=== PATIENT | female | born 1940 | race American Indian/Alaskan Native ===

== ENCOUNTER 2017-12-30 21:45 | Inpatient (IN) | payer MEDICARE, OTHER ==
[2017-12-30 21:46] VITALS: BMI 14.7
[2017-12-30 22:07] LABS: VENOUS BLOOD GAS BASE EXCESS 16.6 mmol/L (0.0-2.0); VENOUS BLOOD GAS PCO2 50 mmHg (40-60); VENOUS BLOOD GAS PO2 76 mm/Hg (30-55); VENOUS BLOOD PH 7.53 (7.32-7.43)
[2017-12-30] MEDS ORDERED: Sodium Chloride 0.9% 1,000 ML ONE ×2 (22:10→23:05)
[2017-12-30] MEDS ORDERED: Sodium Chloride 0.9% 1,000 ML IV ONE (22:11)
--- NOTE | 2017-12-30 22:11 | C.PDOC ---
History Of Present Illness 77 y/o female, with Hx of HTN, aphasia, and questionable CVA& Dementia, was sent from [facility] after a staff member noticed that the patient was not eating well and seemed lethargic. Patient known to have an elevated temperature. Patient DNR, DNI, and she is unable to provide further Hx due to condition. Vital signs noted febrile and Tachycardic. Patient was also diagnosed with COPD about 3 weeks ago in [facility]. Chief Complaint (Nursing): Shortness Of Breath History Per: Patient History/Exam Limitations: no limitations Onset/Duration Of Symptoms: Hrs Current Symptoms Are (Timing): Still Present Current Respiratory Medications: See Home Med List Recent travel outside of the [place]: No Past Medical History Reviewed: Historical Data, Nursing Documentation, Vital Signs Vital Signs: Last Vital Signs Temp 99.4 F 12/30/17 23:36 Pulse 114 H 12/30/17 23:45 Resp 36 H 12/30/17 23:45 BP 173/75 H 12/30/17 23:45 Pulse Ox 99 12/30/17 23:45 - Medical History PMH: Anxiety, Arthritis (BACK), Asthma, COPD, HTN, Hypercholesterolemia Surgical History: No Surg Hx Family History: States: Unknown Family Hx - Social History Hx Alcohol Use: No Hx Substance Use: No - Immunization History Hx Tetanus Toxoid Vaccination: Yes Hx Influenza Vaccination: Yes Hx Pneumococcal Vaccination: Yes Review Of Systems Review Of Systems: ROS cannot be obtained secondary to pt's inabilty to answer questions. (Patient Unable to participate) Physical Exam - Physical Exam Appears: Non-toxic, Other (Non-verbal, only moaning. ) Skin: No Rash, Other (Poor skin turgor ) Head: Atraumatic, Normacephalic Eye(s): bilateral: Normal Inspection, PERRL, EOMI Ear(s): Bilateral: Normal Oral Mucosa: Dry (Extremely Dry ) Tongue: Fissured Throat: Normal, No Erythema, No Exudate, No Drooling Neck: Supple Chest: Symmetrical, No Tenderness Cardiovascular: Rhythm Regular (Accelerated ), No JVD Respiratory: Rales (bibasilar crackles), No Rhonchi, No Stridor, No Wheezing Gastrointestinal/Abdominal: Soft, No Tenderness, No Distention, No Guarding, No Rebound Extremity: No Deformity, Other (Right AKA) Pulses: Left Dorsalis Pedis: Normal, Right Dorsalis Pedis: Normal Neurological/Psych: No Oriented x3, No Normal Speech, No Normal Cognition, Other (No focal deficits ) ED Course And Treatment - Laboratory Results Result Diagrams: 12/30/17 22:26 12/30/17 22:26 Interpretation Of Abnormal: c/w urosepsis Urine POC: Negative O2 Sat by Pulse Oximetry: 100 (RA) Pulse Ox Interpretation: Normal - Other Rad CXR X-Ray: Interpreted by Me, Viewed By Me Interpretation: - No obvious infiltrates. - No active pulmonary disease Medical Decision Making Medical Decision Making: Impression: - Sepsis - Probable Pneumonia - r/o PE - Patient DNR & DNI - Ordered BG, blood work, EKG, CXR, blood and urine culture, and urinalysis. - Will provide IV fluids and Tylenol and notify PMD for admission. Diagnosis: - Urosepsis - Hypernatremia Called for patient's admission. Disposition - Disposition Disposition: HOSPITALIZED Disposition Time: 04:09 Condition: GUARDED - Clinical Impression Clinical Impression: Fever, UTI (urinary tract infection), bacterial, Dehydration with hypernatremia - Scribe Statement The provider has reviewed the documentation as recorded by the Scribe Osmany Hazel All medical record entries made by the Scribe were at my direction and personally dictated by me. I have reviewed the chart and agree that the record accurately reflects my personal performance of the history, physical exam, medical decision making, and the department course for this patient. I have also personally directed, reviewed, and agree with the discharge instructions and disposition.
[2017-12-30 22:34] LABS: BASO # 0.1 K/uL (0.0-0.2); BASO % 0.6 % (0.0-2.0); EOS % 0.2 % (0.0-4.0); HEMOGLOBIN 8.5 g/dL (11.0-16.0); LYMPH # 1.3 K/uL (1.0-4.3); MEAN CELL VOLUME 88.5 fL (81.0-99.0); MEAN CORPUSCULAR HEMOGLOBIN 27.9 pg (27.0-31.0); MEAN CORPUSCULAR HGB CONC 31.5 g/dL (33.0-37.0); MEAN PLATELET VOLUME 8.9 fL (7.2-11.7); MONO # 0.9 K/uL (0.0-0.8); MONO % 5.6 % (0.0-10.0); NEUT % 85.6 % (50.0-75.0); NRBC % 0.2 % (0.0-2.0); PLATELET COUNT 272 K/uL (130-400); RBC 3.05 Mil/uL (3.80-5.20); RED CELL DISTRIBUTION WIDTH 17.4 % (11.5-14.5); WHITE BLOOD COUNT 16.3 K/uL (4.8-10.8)
[2017-12-30 22:40] LABS: URINE BACTERIA MOD (<OCC); URINE BILIRUBIN NEGATIVE (NEGATIVE); URINE BLOOD 1+ (NEGATIVE); URINE CLARITY Hazy (Clear); URINE COLOR Amber (YELLOW); URINE GLUCOSE (UA) NORMAL (Normal); URINE LEUKOCYTE ESTERASE TRACE Leu/uL (Negative); URINE PROTEIN 1+ mg/dL (NEGATIVE)
[2017-12-30] MEDS ORDERED: cefTRIAXone IV 1 gm in Dextros 50 ML IVPB STA (22:42)
[2017-12-30 22:43] LABS: INR 1.3; PROTHROMBIN TIME 13.9 SECONDS (9.7-12.2)
[2017-12-30 22:49] LABS: ALB/GLOB RATIO 1.1 (1.0-2.1); ALBUMIN 3.6 g/dL (3.5-5.0); ALT/SGPT 28 U/L (9-52); AST/SGOT 75 U/L (14-36); BLOOD UREA NITROGEN 26 mg/dL (7-17); GFR AFRICAN-AMERICAN > 60; GFR NON-AFRICAN AMERICAN > 60
[2017-12-30] MEDS ORDERED: cefTRIAXone IV 1 gm in Dextros 50 ML IVPB ONE (22:52)
[2017-12-30 23:15] LABS: BANDS 2 % (0-2); LYMPHOCYTE 6 % (20-40); MONOCYTE 5 % (0-10); NEUTROPHIL 87 % (50-75); PLATELET ESTIMATE NORMAL (NORMAL); TOTAL CELLS COUNTED 100
[2017-12-30] MEDS ORDERED: Sodium Chloride 0.9% 1,000 ML IV SCH (23:15)
--- NOTE | 2017-12-30 23:56 | CP.PCM.HP ---
History of Present Illness - History of Present Illness History of Present Illness: CC: shortness of breath History Of Present Illness 77 y/o female, with Hx of HTN, aphasia, and questionable CVA& Dementia, was sent from [facility] after a staff member noticed that the patient was not eating well and seemed lethargic. Patient known to have an elevated temperature. Patient DNR, DNI, and she is unable to provide further Hx due to condition. Vital signs noted febrile and Tachycardic. Patient was also diagnosed with COPD about 3 weeks ago in [facility]. Present on Admission - Present on Admission Any Indicators Present on Admission: Yes Review of Systems - Review of Systems Systems not reviewed;Unavailable: Acuity of Condition - Constitutional Constitutional: Fatigue, Fever, Lethargy, Malaise, Weakness - EENT Eyes: absent: As Per HPI, Blind Spots, Blurred Vision, Change in Vision, Decreased Night Vision, Diplopia, Discharge, Dry Eye, Exophthalmos, Floaters, Irritation, Itchy Eyes, Loss of Peripheral Vision, Pain, Photophobia, Requires Corrective Lenses, Sees Flashes, Spots in Vision, Tunnel Vision, Other Visual Disturbances, Loss of Vision, Other - Cardiovascular Cardiovascular: absent: As Per HPI, Acrocyanosis, Chest Pain, Chest Pain at Rest , Chest Pain with Activity, Claudication, Diaphoresis, Dyspnea, Dyspnea on Exertion, Edema, Irregular Heart Rhythm, Pain Radiating to Arm/Neck/Jaw, Leg Edema, Leg Ulcers, Lightheadedness, Orthopnea, Palpitations, Paroxysmal Nocturnal Dyspnea, Pedal Edema, Radiating Pain, Rapid Heart Rate, Slow Heart Rate, Syncope, Other - Respiratory Respiratory: Cough, Dyspnea, Dyspnea on Exertion - Gastrointestinal Gastrointestinal: Abdominal Pain - Genitourinary Genitourinary: Urinary Frequency - Reproductive: Female Reproductive:Female: absent: As Per HPI, Amenorrhea, Amenorrhea/ Control, Currently Menstual, Cycle <21 Days, Cycle >35 Days, Cycle Variable, Menses 1-7 Days, Menses >/= 8 Days, Menses Variable, Cycle > 4 Weeks Between, No Menses for 6 Months, Heavy Menses, Light Menses, Normal Menses, Spotting Between Cycles , S/P Hysterectomy, Menopausal, Post Menopausal, Premenarche, Abnormal Vaginal Bleeding, Dysmenorrhea, Dyspareunia, Genital Lesions, Genital Pruritis, Pelvic Pain, Prolapse Symptoms, Sexual Dysfunction, Vaginal Discharge, Vaginal Dryness , Vaginal Odor, Vaginal Pruritis, Other - Menstruation Menstruation: absent: As Per HPI, Amenorrhea, Amenorrhea/ Control, Currently Menstual, Cycle <21 Days, Cycle >35 Days, Cycle Variable, Menses 1-7 Days, Menses >/= 8 Days, Menses Variable, Cycle > 4 Weeks Between, No Menses for 6 Months, Heavy Menses, Light Menses, Normal Menses, Spotting Between Cycles , S/P Hysterectomy, Menopausal, Post Menopausal, Premenarche, Abnormal Vaginal Bleeding, Dysmenorrhea, Other - Musculoskeletal Musculoskeletal: Abnormal Gait, Back Pain, Muscle Weakness, Myalgias, Stiffness - Neurological Neurological: Abnormal Gait, Dizziness, Memory Loss - Psychiatric Psychiatric: Anxiety, Irritability - Endocrine Endocrine: absent: As Per HPI, Change in Body Appearance, Change in Libido, Cold Intolorance, Deepening of Voice, Excessive Sweating, Fatigue, Flushing, Heat Intolorance, Increase in Ring/Shoe/Hat Size, Palpitations, Polydipsia, Polyphagia, Polyuria, Other Past Patient History - Infectious Disease Hx of Infectious Diseases: None - Past Medical History & Family History Past Medical History?: Yes - Past Social History Smoking Status: Never Smoked - CARDIAC Hx Hypercholesterolemia: Yes Hx Hypertension: Yes - PULMONARY Hx Asthma: Yes Hx Chronic Obstructive Pulmonary Disease (COPD): Yes - NEUROLOGICAL Hx Neurological Disorder: No - RENAL Hx Chronic Kidney Disease: No - ENDOCRINE/METABOLIC Hx Endocrine Disorders: No - INTEGUMENTARY Hx Dermatological Problems: Yes Other/Comment: Non-healing wound right heel secured with gauze - MUSCULOSKELETAL/RHEUMATOLOGICAL Hx Arthritis: Yes (BACK) - GASTROINTESTINAL Hx Gastrointestinal Disorders: No - PSYCHIATRIC Hx Anxiety: Yes Hx Substance Use: No - SURGICAL HISTORY Hx Surgeries: Yes Other/Comment: Left AKA - ANESTHESIA Hx Anesthesia: Yes Hx Anesthesia Reactions: No Meds Allergies/Adverse Reactions: Allergies Allergy/AdvReac Type Severity Reaction Status Date / Time tuna oil Allergy URTICARIA Verified 12/30/17 21:48 Physical Exam - Constitutional Appears: No Acute Distress, Chronically Ill - Head Exam Head Exam: ATRAUMATIC, NORMAL INSPECTION, NORMOCEPHALIC - Eye Exam Eye Exam: EOMI, Normal appearance, PERRL Pupil Exam: NORMAL ACCOMODATION, PERRL - Respiratory Exam Respiratory Exam: Decreased Breath Sounds, Rhonchi - Cardiovascular Exam Cardiovascular Exam: REGULAR RHYTHM, +S1, +S2 - GI/Abdominal Exam GI & Abdominal Exam: Normal Bowel Sounds, Soft. absent: Tenderness - Rectal Exam Rectal Exam: Deferred - Back Exam Back exam: CVA tenderness (L), muscle spasm - Neurological Exam Neurological exam: Alert, CN II-XII Intact, Oriented x3 - Psychiatric Exam Psychiatric exam: Anxious - Skin Skin Exam: Dry, Intact, Normal Color, Warm Results - Vital Signs Recent Vital Signs: Last Vital Signs Temp 99.4 F 12/30/17 23:36 Pulse 114 H 12/30/17 23:45 Resp 36 H 12/30/17 23:45 BP 173/75 H 12/30/17 23:45 Pulse Ox 99 12/30/17 23:45 - Labs Result Diagrams: 01/03/18 07:36 01/03/18 07:36 Labs: Laboratory Results - last 24 hr 12/30/17 12/30/17 12/30/17 22:03 22:26 22:26 WBC 16.3 H D RBC 3.05 L Hgb 8.5 L Hct 27.0 L MCV 88.5 MCH 27.9 MCHC 31.5 L RDW 17.4 H Plt Count 272 D MPV 8.9 Neut % (Auto) 85.6 H Lymph % (Auto) 8.0 L [place] % (Auto) 5.6 Eos % (Auto) 0.2 Baso % (Auto) 0.6 Neut # (Auto) 14.0 H Lymph # (Auto) 1.3 [place] # (Auto) 0.9 H Eos # (Auto) 0.0 Baso # (Auto) 0.1 Neutrophils % (Manual) 87 H Band Neutrophils % 2 Lymphocytes % (Manual) 6 L Monocytes % (Manual) 5 Platelet Estimate Normal PT INR APTT pO2 76 H VBG pH 7.53 H VBG pCO2 50 VBG HCO3 37.9 VBG Total CO2 43.3 H VBG O2 Sat (Calc) 98.0 H VBG Base Excess 16.6 H VBG Potassium 2.8 L Sodium 161.0 H* 163 H* Chloride 117.0 H 109 H Glucose 141 H Lactate 2.5 H Crit Value Called To Er nurse Crit Value Called By Soheila rt Crit Value Read Back Y Blood Gas Notified Time 2206 Potassium 3.2 L Carbon Dioxide 38 H Anion Gap 19 BUN 26 H Creatinine 0.6 L Est GFR ( Amer) > 60 Est GFR (Non-Af Amer) > 60 Random Glucose 134 H Calcium 11.0 H Total Bilirubin 0.6 AST 75 H D ALT 28 Alkaline Phosphatase 101 Total Protein 7.0 Albumin 3.6 Globulin 3.4 Albumin/Globulin Ratio 1.1 Venous Blood Potassium 2.8 L Urine Color Urine Clarity Urine pH Ur Specific [place] Urine Protein Urine Glucose (UA) Urine Ketones Urine Blood Urine Nitrate Urine Bilirubin Urine Urobilinogen Ur Leukocyte Esterase Urine WBC (Auto) Urine RBC (Auto) Urine Bacteria 12/30/17 12/30/17 22:26 22:28 WBC RBC Hgb Hct MCV MCH MCHC RDW Plt Count MPV Neut % (Auto) Lymph % (Auto) [place] % (Auto) Eos % (Auto) Baso % (Auto) Neut # (Auto) Lymph # (Auto) [place] # (Auto) Eos # (Auto) Baso # (Auto) Neutrophils % (Manual) Band Neutrophils % Lymphocytes % (Manual) Monocytes % (Manual) Platelet Estimate PT 13.9 H INR 1.3 APTT 33 pO2 VBG pH VBG pCO2 VBG HCO3 VBG Total CO2 VBG O2 Sat (Calc) VBG Base Excess VBG Potassium Sodium Chloride Glucose Lactate Crit Value Called To Crit Value Called By Crit Value Read Back Blood Gas Notified Time Potassium Carbon Dioxide Anion Gap BUN Creatinine Est GFR ( Amer) Est GFR (Non-Af Amer) Random Glucose Calcium Total Bilirubin AST ALT Alkaline Phosphatase Total Protein Albumin Globulin Albumin/Globulin Ratio Venous Blood Potassium Urine Color Deborah Urine Clarity Hazy Urine pH 6.0 Ur Specific [place] 1.019 Urine Protein 1+ H Urine Glucose (UA) Normal Urine Ketones Trace Urine Blood 1+ H Urine Nitrate Negative Urine Bilirubin Negative Urine Urobilinogen 4.0 H Ur Leukocyte Esterase Trace Urine WBC (Auto) 6 H Urine RBC (Auto) 7 H Urine Bacteria Mod H Assessment & Plan (1) COPD (chronic obstructive pulmonary disease) Status: Acute (2) Dehydration with hypernatremia Status: Acute (3) Fever Status: Acute (4) Septicemia Status: Acute (5) UTI (urinary tract infection), bacterial Status: Acute
[2017-12-31] MEDS ORDERED: Vancomycin 1 gm/NS 200 ml 1 GM/200 ML BAG IVPB ONE (00:55)
[2017-12-31] MEDS ORDERED: guaiFENesin 200 mg/10 ml Syrup UD PO PRN (01:08)
[2017-12-31] MEDS ORDERED: Magnesium Hydroxide Susp 30 ml UD PO PRN (01:08)
[2017-12-31] MEDS ORDERED: Dextrose 5%/0.45% NS 1,000 ML IV SCH (01:15)
[2017-12-31] MEDS ORDERED: Piperacill/Tazo 3.375gm in Dex 3.375 GM/50 ML BAG IVPB SCH (01:15)
[2017-12-31 06:48] LABS: BASO % 0.2 % (0.0-2.0); EOS # 0.1 K/uL (0.0-0.7); EOS % 0.7 % (0.0-4.0); HEMOGLOBIN 7.3 g/dL (11.0-16.0); LYMPH # 0.8 K/uL (1.0-4.3); LYMPH % 6.3 % (20.0-40.0); MEAN CELL VOLUME 89.2 fL (81.0-99.0); MEAN CORPUSCULAR HEMOGLOBIN 28.5 pg (27.0-31.0); MEAN CORPUSCULAR HGB CONC 31.9 g/dL (33.0-37.0); MEAN PLATELET VOLUME 8.5 fL (7.2-11.7); MONO # 0.7 K/uL (0.0-0.8); MONO % 6.1 % (0.0-10.0); NEUT # 10.6 K/uL (1.8-7.0); NEUT % 86.7 % (50.0-75.0); NRBC % 0.1 % (0.0-2.0); PLATELET COUNT 232 K/uL (130-400); RBC 2.56 Mil/uL (3.80-5.20); RED CELL DISTRIBUTION WIDTH 17.1 % (11.5-14.5); WHITE BLOOD COUNT 12.2 K/uL (4.8-10.8)
[2017-12-31 07:23] LABS: ALB/GLOB RATIO 1.1 (1.0-2.1); ALT/SGPT 34 U/L (9-52); AST/SGOT 55 U/L (14-36); BLOOD UREA NITROGEN 22 mg/dL (7-17); CALCIUM 10.1 mg/dl (8.6-10.4); GFR AFRICAN-AMERICAN > 60; GFR NON-AFRICAN AMERICAN > 60
[2017-12-31] MEDS: Albuterol-Ipratrop 3 mg / 0.5 (3 ml) UD INH SCH ×3 (07:55→20:18)
[2017-12-31] MEDS: Tiotropium 18 mcg Cap For Inhalation INH SCH (07:55)
[2017-12-31 08:29] LABS: ANISOCYTOSIS SLIGHT; BANDS 5 % (0-2); EOSINOPHIL 1 % (0-4); HYPOCHROMIC SLIGHT; LYMPHOCYTE 4 % (20-40); MONOCYTE 2 % (0-10); NEUTROPHIL 88 % (50-75); PLATELET ESTIMATE NORMAL (NORMAL); TOTAL CELLS COUNTED 100
--- NOTE | 2017-12-31 08:42 | RAD ---
Chest x-ray single frontal view History: Respiratory distress. Comparison: 06/23/2017 Findings: Biapical pleural thickening with upper lobe granulomatous changes. Hyperinflation suggestive for COPD and or emphysematous changes. Bibasilar breast and nipple shadows. Status post median sternotomy and CABG. Calcification at the aortic knob. Heart size within normal limits. Degenerative changes in the spine. Impression: Biapical pleural thickening with upper lobe granulomatous changes. Hyperinflation suggestive for COPD and or emphysematous changes. Bibasilar breast and nipple shadows. Status post median sternotomy and CABG. Calcification at the aortic knob. Heart size within normal limits.
[2017-12-31] MEDS: Magnesium Oxide 400 mg Tab UD PO SCH ×2 (09:37→17:41)
[2017-12-31] MEDS: Enoxaparin 40 mg Syringe SC SCH (09:38)
[2017-12-31] MEDS: Pantoprazole 40 mg EC Tab PO SCH (09:38)
[2017-12-31] MEDS ORDERED: Potassium Chloride 20 mEq ER Tab PO ONE (12:00)
--- NOTE | 2017-12-31 12:36 | CARD ---
APPROVED REPORT EKG Measurement Heart [id number] <Conclusion> Undetermined rhythm Nonspecific ST and T wave abnormality Abnormal ECG
[2017-12-31] MEDS: Piperacill/Tazo 3.375gm in Dex 3.375 GM/50 ML BAG IVPB SCH ×2 (13:21→21:12)
[2017-12-31] MEDS: guaiFENesin 200 mg/10 ml Syrup UD PO SCH (21:50)
--- NOTE | 2017-12-31 23:21 | CP.PCM.PN ---
Subjective - Date & Time of Evaluation Date of Evaluation: 12/31/17 Time of Evaluation: 18:40 - Subjective Subjective: Pt is feeling better, seen and examined by me today, improving, Na is improving. on Iv fluids, antibiotics, monitor pt on medical management Objective - Vital Signs/Intake and Output Vital Signs (last 24 hours): Temp Pulse Resp BP Pulse Ox 99.7 F H 85 23 110/50 L 99 12/31/17 22:51 12/31/17 22:51 12/31/17 22:51 12/31/17 22:51 12/31/17 22:51 Intake and Output: 12/31/17 01/01/18 18:59 06:59 Intake Total 1495 355 Output Total 450 100 Balance 1045 255 - Medications Medications: Current Medications Acetaminophen (Tylenol 325mg Tab) 650 mg PO Q4 PRN PRN Reason: Pain, Mild (1-3) Last Admin: 12/31/17 17:41 Dose: 650 mg Albuterol/Ipratropium (Duoneb 3 Mg/0.5 Mg (3 Ml) Ud) 3 ml INH RQID [facility] Last Admin: 12/31/17 20:18 Dose: Not Given Ascorbic Acid (Vitamin C 500 Mg Tab) 500 mg PO DAILY [facility] Last Admin: 12/31/17 09:37 Dose: 500 mg Aspirin (Ecotrin) 81 mg PO DAILY [facility] Last Admin: 12/31/17 09:37 Dose: 81 mg Clonazepam (Klonopin) 0.5 mg PO HS [facility] Last Admin: 12/31/17 21:20 Dose: 0.5 mg Diltiazem HCl (Cardizem) 30 mg PO Q6 [facility] Enoxaparin Sodium (Lovenox) 40 mg SC DAILY [facility] Last Admin: 12/31/17 09:38 Dose: 40 mg Guaifenesin (Robitussin) 200 mg PO Q4H [facility] Last Admin: 12/31/17 21:50 Dose: Not Given Dextrose (Dextrose 5% In Water 1000 Ml) 1,000 mls @ 80 mls/hr IV .[id number] [facility] Last Admin: 12/31/17 21:49 Dose: 80 mls/hr Piperacillin Sod/Tazobactam Sod (Zosyn 3.375 Gm Iv Premix) 3.375 gm in 50 mls @ 100 mls/hr IVPB Q8H [facility] PRN Reason: Protocol Last Admin: 12/31/17 21:12 Dose: 100 mls/hr Magnesium Hydroxide (Milk Of Magnesia) 30 ml PO DAILY PRN PRN Reason: Constipation Magnesium Oxide (Mag-Ox) 400 mg PO BID [facility] Last Admin: 12/31/17 17:41 Dose: 400 mg Pantoprazole Sodium (Protonix Ec Tab) 40 mg PO DAILY [facility] Last Admin: 12/31/17 09:38 Dose: 40 mg Rosuvastatin Calcium (Crestor) 10 mg PO HS [facility] Last Admin: 12/31/17 22:10 Dose: Not Given Fluticasone/Salmeterol (Advair Diskus 500/50) 1 puff INH RQ12 [facility] Tiotropium [place] (Spiriva) 18 mcg INH RQD [facility] Last Admin: 12/31/17 07:55 Dose: Not Given Tramadol HCl (Ultram) 50 mg PO Q8 PRN PRN Reason: Pain, severe (8-10) Last Admin: 12/31/17 01:36 Dose: 50 mg - Labs Labs: 12/31/17 06:42 12/31/17 06:42 PT 13.9 SECONDS (9.7-12.2) H 12/30/17 22:26 INR 1.3 12/30/17 22:26 APTT 33 SECONDS (21-34) 12/30/17 22:26 - Constitutional Appears: No Acute Distress - Head Exam Head Exam: ATRAUMATIC, NORMAL INSPECTION, NORMOCEPHALIC - Eye Exam Eye Exam: EOMI, Normal appearance, PERRL Pupil Exam: NORMAL ACCOMODATION, PERRL - ENT Exam ENT Exam: Mucous Membranes Moist, Normal Exam - Respiratory Exam Respiratory Exam: Clear to Ausculation Bilateral, NORMAL BREATHING PATTERN - Cardiovascular Exam Cardiovascular Exam: REGULAR RHYTHM, +S1, +S2. absent: Murmur - GI/Abdominal Exam GI & Abdominal Exam: Soft, Normal Bowel Sounds. absent: Tenderness - Neurological Exam Neurological Exam: Alert, CN II-XII Intact, Oriented x3 - Psychiatric Exam Psychiatric exam: Anxious - Skin Skin Exam: Dry, Intact, Normal Color, Warm Assessment and Plan (1) COPD (chronic obstructive pulmonary disease) Status: Acute (2) Dehydration with hypernatremia Status: Acute (3) Fever Status: Acute (4) Septicemia Status: Acute (5) UTI (urinary tract infection), bacterial Status: Acute
[2018-01-01] MEDS: guaiFENesin 200 mg/10 ml Syrup UD PO SCH ×6 (02:30→22:09)
[2018-01-01] MEDS: Piperacill/Tazo 3.375gm in Dex 3.375 GM/50 ML BAG IVPB SCH ×3 (04:14→21:12)
[2018-01-01] MEDS: Albuterol-Ipratrop 3 mg / 0.5 (3 ml) UD INH SCH ×2 (08:18→20:37)
[2018-01-01] MEDS: Fluticasone-Salmeterol 500-50mcg Diskus INH SCH ×2 (08:18→20:36)
[2018-01-01] MEDS: Tiotropium 18 mcg Cap For Inhalation INH SCH (08:18)
[2018-01-01 08:35] LABS: BASO # 0.1 K/uL (0.0-0.2); BASO % 0.4 % (0.0-2.0); EOS # 0.3 K/uL (0.0-0.7); EOS % 2.1 % (0.0-4.0); HEMOGLOBIN 9.1 g/dL (11.0-16.0); LYMPH # 1.1 K/uL (1.0-4.3); LYMPH % 8.1 % (20.0-40.0); MEAN CORPUSCULAR HEMOGLOBIN 29.3 pg (27.0-31.0); MEAN CORPUSCULAR HGB CONC 32.5 g/dL (33.0-37.0); MEAN PLATELET VOLUME 8.8 fL (7.2-11.7); MONO # 0.8 K/uL (0.0-0.8); MONO % 5.8 % (0.0-10.0); NEUT # 10.9 K/uL (1.8-7.0); NEUT % 83.6 % (50.0-75.0); PLATELET COUNT 256 K/uL (130-400); RBC 3.09 Mil/uL (3.80-5.20); RED CELL DISTRIBUTION WIDTH 15.9 % (11.5-14.5)
[2018-01-01 09:02] LABS: ALBUMIN 2.9 g/dL (3.5-5.0); ALT/SGPT 35 U/L (9-52); AST/SGOT 59 U/L (14-36); BLOOD UREA NITROGEN 19 mg/dL (7-17); CALCIUM 9.8 mg/dl (8.6-10.4); GFR AFRICAN-AMERICAN > 60; GFR NON-AFRICAN AMERICAN > 60
[2018-01-01 10:08] LABS: ANISOCYTOSIS SLIGHT; BANDS 5 % (0-2); EOSINOPHIL 2 % (0-4); LYMPHOCYTE 4 % (20-40); MONOCYTE 6 % (0-10); NEUTROPHIL 83 % (50-75); PLATELET ESTIMATE NORMAL (NORMAL); TOTAL CELLS COUNTED 100
[2018-01-01 10:09] LABS: POIKILOCYTOSIS SLIGHT
[2018-01-01] MEDS: Enoxaparin 40 mg Syringe SC SCH (10:13)
[2018-01-01] MEDS: Pantoprazole 40 mg EC Tab PO SCH (10:13)
[2018-01-01] MEDS: Magnesium Oxide 400 mg Tab UD PO SCH ×2 (10:13→18:38)
[2018-01-01] MEDS: Potassium Ch 20mEq in D5W 1,000 ML IV SCH ×2 (12:41→21:11)
[2018-01-01 13:51] LABS: ARTERIAL BLOOD GAS HCO3 32.5 mmol/L (21-28); ARTERIAL BLOOD GAS HEMOGLOBIN 13.4 g/dL (11.7-17.4); ARTERIAL BLOOD GAS O2 SAT 100.1 % (95-98); ARTERIAL BLOOD GAS PCO2 71 mm/Hg (35-45); ARTERIAL BLOOD GAS PH 7.34 (7.35-7.45); ARTERIAL BLOOD GAS PO2 315 mm/Hg (80-100); ARTERIAL BLOOD GAS TCO2 40.5 mmol/L (22-28)
--- NOTE | 2018-01-01 23:58 | CP.PCM.PN ---
Subjective - Date & Time of Evaluation Date of Evaluation: 01/01/18 Time of Evaluation: 17:00 - Subjective Subjective: Pt seen and examined at bedside, Na is improving. on Iv fluids, antibiotics, monitor pt on medical management Objective - Vital Signs/Intake and Output Vital Signs (last 24 hours): Temp Pulse Resp BP Pulse Ox 99.3 F 100 H 18 136/60 100 01/01/18 16:00 01/01/18 16:00 01/01/18 16:00 01/01/18 16:00 01/01/18 16:00 Intake and Output: 01/01/18 01/02/18 18:59 06:59 Intake Total 780 1325 Output Total 400 300 Balance 380 1025 - Medications Medications: Current Medications Acetaminophen (Tylenol 325mg Tab) 650 mg PO Q4 PRN PRN Reason: Pain, Mild (1-3) Last Admin: 12/31/17 17:41 Dose: 650 mg Albuterol/Ipratropium (Duoneb 3 Mg/0.5 Mg (3 Ml) Ud) 3 ml INH RQID [facility] Last Admin: 01/01/18 20:37 Dose: Not Given Ascorbic Acid (Vitamin C 500 Mg Tab) 500 mg PO DAILY [facility] Last Admin: 01/01/18 10:13 Dose: 500 mg Aspirin (Ecotrin) 81 mg PO DAILY [facility] Last Admin: 01/01/18 10:13 Dose: 81 mg Clonazepam (Klonopin) 0.5 mg PO HS [facility] Last Admin: 01/01/18 21:11 Dose: Not Given Diltiazem HCl (Cardizem) 60 mg PO Q8 [facility] Last Admin: 01/01/18 21:10 Dose: Not Given Enoxaparin Sodium (Lovenox) 40 mg SC DAILY [facility] Last Admin: 01/01/18 10:13 Dose: 40 mg Guaifenesin (Robitussin) 200 mg PO Q4H [facility] Last Admin: 01/01/18 22:09 Dose: Not Given Piperacillin Sod/Tazobactam Sod (Zosyn 3.375 Gm Iv Premix) 3.375 gm in 50 mls @ 100 mls/hr IVPB Q8H [facility] PRN Reason: Protocol Last Admin: 01/01/18 21:12 Dose: 100 mls/hr Potassium Chloride/Dextrose (Potassium Chl 20 Meq In D5w) 1,000 mls @ 125 mls/ hr IV .Q8H [facility] Last Admin: 01/01/18 21:11 Dose: 125 mls/hr Magnesium Hydroxide (Milk Of Magnesia) 30 ml PO DAILY PRN PRN Reason: Constipation Magnesium Oxide (Mag-Ox) 400 mg PO BID [facility] Last Admin: 01/01/18 18:38 Dose: Not Given Pantoprazole Sodium (Protonix Ec Tab) 40 mg PO DAILY [facility] Last Admin: 01/01/18 10:13 Dose: 40 mg Rosuvastatin Calcium (Crestor) 10 mg PO HS [facility] Last Admin: 01/01/18 21:10 Dose: Not Given Fluticasone/Salmeterol (Advair Diskus 500/50) 1 puff INH RQ12 [facility] Last Admin: 01/01/18 20:36 Dose: Not Given Tiotropium [place] (Spiriva) 18 mcg INH RQD [facility] Last Admin: 01/01/18 08:18 Dose: Not Given Tramadol HCl (Ultram) 50 mg PO Q8 PRN PRN Reason: Pain, severe (8-10) Last Admin: 12/31/17 01:36 Dose: 50 mg - Labs Labs: 01/01/18 08:26 01/01/18 08:26 PT 13.9 SECONDS (9.7-12.2) H 12/30/17 22:26 INR 1.3 12/30/17 22:26 APTT 33 SECONDS (21-34) 12/30/17 22:26
[2018-01-02] MEDS: guaiFENesin 200 mg/10 ml Syrup UD PO SCH ×6 (02:30→22:55)
[2018-01-02] MEDS: Piperacill/Tazo 3.375gm in Dex 3.375 GM/50 ML BAG IVPB SCH ×3 (04:17→21:33)
[2018-01-02] MEDS: Potassium Ch 20mEq in D5W 1,000 ML IV SCH ×5 (04:21→21:34)
[2018-01-02] MEDS: Albuterol-Ipratrop 3 mg / 0.5 (3 ml) UD INH SCH ×3 (07:45→13:49)
[2018-01-02] MEDS: Fluticasone-Salmeterol 500-50mcg Diskus INH SCH (07:45)
[2018-01-02] MEDS: Tiotropium 18 mcg Cap For Inhalation INH SCH (07:59)
[2018-01-02 08:10] LABS: BASO % 0.2 % (0.0-2.0); EOS # 0.1 K/uL (0.0-0.7); EOS % 1.3 % (0.0-4.0); HEMOGLOBIN 8.3 g/dL (11.0-16.0); LYMPH # 0.7 K/uL (1.0-4.3); LYMPH % 7.7 % (20.0-40.0); MEAN CELL VOLUME 88.8 fL (81.0-99.0); MEAN CORPUSCULAR HEMOGLOBIN 29.3 pg (27.0-31.0); MEAN PLATELET VOLUME 8.9 fL (7.2-11.7); MONO # 0.6 K/uL (0.0-0.8); MONO % 6.6 % (0.0-10.0); NEUT # 8.1 K/uL (1.8-7.0); NEUT % 84.2 % (50.0-75.0); NRBC % 0.1 % (0.0-2.0); PLATELET COUNT 249 K/uL (130-400); RBC 2.85 Mil/uL (3.80-5.20); RED CELL DISTRIBUTION WIDTH 15.3 % (11.5-14.5); WHITE BLOOD COUNT 9.6 K/uL (4.8-10.8)
[2018-01-02 08:26] LABS: ALBUMIN 2.7 g/dL (3.5-5.0); ALT/SGPT 27 U/L (9-52); AST/SGOT 47 U/L (14-36); BLOOD UREA NITROGEN 11 mg/dL (7-17); CALCIUM 9.2 mg/dl (8.6-10.4); GFR AFRICAN-AMERICAN > 60; GFR NON-AFRICAN AMERICAN > 60
[2018-01-02 10:05] LABS: ANISOCYTOSIS SLIGHT; BANDS 6 % (0-2); HYPOCHROMIC SLIGHT; LYMPHOCYTE 7 % (20-40); MONOCYTE 6 % (0-10); NEUTROPHIL 81 % (50-75); PLATELET ESTIMATE NORMAL (NORMAL); POIKILOCYTOSIS SLIGHT; TOTAL CELLS COUNTED 100
[2018-01-02 10:06] LABS: OVALOCYTES SLIGHT; SCHISTOCYTES SLIGHT
[2018-01-02] MEDS: Pantoprazole 40 mg EC Tab PO SCH (10:07)
[2018-01-02] MEDS: Magnesium Oxide 400 mg Tab UD PO SCH ×2 (10:07→17:48)
[2018-01-02] MEDS: Enoxaparin 40 mg Syringe SC SCH (10:07)
[2018-01-02 17:32] LABS: INR 1.2; PROTHROMBIN TIME 12.9 SECONDS (9.7-12.2)
[2018-01-03] MEDS: Potassium Ch 20mEq in D5W 1,000 ML IV SCH ×4 (01:30→20:30)
[2018-01-03] MEDS: guaiFENesin 200 mg/10 ml Syrup UD PO SCH ×6 (02:30→21:35)
[2018-01-03] MEDS: Piperacill/Tazo 3.375gm in Dex 3.375 GM/50 ML BAG IVPB SCH ×3 (04:12→21:21)
[2018-01-03 07:43] LABS: HEMOGLOBIN 8.4 g/dL (11.0-16.0); MEAN CELL VOLUME 87.8 fL (81.0-99.0); MEAN CORPUSCULAR HEMOGLOBIN 29.5 pg (27.0-31.0); MEAN CORPUSCULAR HGB CONC 33.6 g/dL (33.0-37.0); MEAN PLATELET VOLUME 8.8 fL (7.2-11.7); RBC 2.83 Mil/uL (3.80-5.20); RED CELL DISTRIBUTION WIDTH 15.8 % (11.5-14.5); WHITE BLOOD COUNT 9.1 K/uL (4.8-10.8)
[2018-01-03 07:55] LABS: ALBUMIN 2.7 g/dL (3.5-5.0); ALT/SGPT 26 U/L (9-52); AST/SGOT 54 U/L (14-36); BLOOD UREA NITROGEN 6 mg/dL (7-17); CALCIUM 9.2 mg/dl (8.6-10.4); GFR AFRICAN-AMERICAN > 60; GFR NON-AFRICAN AMERICAN > 60
--- NOTE | 2018-01-03 08:25 | CP.PCM.PN ---
Subjective - Date & Time of Evaluation Date of Evaluation: 01/02/18 Time of Evaluation: 19:00 - Subjective Subjective: Pt seen and evaluated, is feeling better, afebrile, no shortness of breath, chest pain Objective - Vital Signs/Intake and Output Vital Signs (last 24 hours): Temp Pulse Resp BP Pulse Ox 98.1 F 90 20 146/71 100 01/03/18 07:53 01/03/18 07:53 01/03/18 07:53 01/03/18 07:53 01/03/18 07:53 Intake and Output: 01/03/18 01/03/18 06:59 18:59 Intake Total 1025 Output Total 250 Balance 775 - Medications Medications: Current Medications Acetaminophen (Tylenol 325mg Tab) 650 mg PO Q4 PRN PRN Reason: Pain, Mild (1-3) Last Admin: 12/31/17 17:41 Dose: 650 mg Albuterol/Ipratropium (Duoneb 3 Mg/0.5 Mg (3 Ml) Ud) 3 ml INH RQID [facility] Last Admin: 01/02/18 13:49 Dose: 3 ml Ascorbic Acid (Vitamin C 500 Mg Tab) 500 mg PO DAILY [facility] Last Admin: 01/02/18 10:07 Dose: 500 mg Aspirin (Ecotrin) 81 mg PO DAILY [facility] Last Admin: 01/02/18 10:07 Dose: 81 mg Clonazepam (Klonopin) 0.5 mg PO HS [facility] Last Admin: 01/02/18 21:57 Dose: 0.5 mg Diltiazem HCl (Cardizem) 60 mg PO Q8 [facility] Last Admin: 01/03/18 05:36 Dose: 60 mg Enoxaparin Sodium (Lovenox) 40 mg SC DAILY [facility] Last Admin: 01/02/18 10:07 Dose: 40 mg Guaifenesin (Robitussin) 200 mg PO Q4H [facility] Last Admin: 01/03/18 02:30 Dose: Not Given Piperacillin Sod/Tazobactam Sod (Zosyn 3.375 Gm Iv Premix) 3.375 gm in 50 mls @ 100 mls/hr IVPB Q8H [facility] PRN Reason: Protocol Last Admin: 01/03/18 04:12 Dose: 100 mls/hr Potassium Chloride/Dextrose (Potassium Chl 20 Meq In D5w) 1,000 mls @ 125 mls/ hr IV .Q8H [facility] Last Admin: 01/03/18 04:59 Dose: Not Given Magnesium Hydroxide (Milk Of Magnesia) 30 ml PO DAILY PRN PRN Reason: Constipation Magnesium Oxide (Mag-Ox) 400 mg PO BID [facility] Last Admin: 01/02/18 17:48 Dose: 400 mg Pantoprazole Sodium (Protonix Inj) 40 mg IVP DAILY [facility] Rosuvastatin Calcium (Crestor) 10 mg PO HS [facility] Last Admin: 01/02/18 21:57 Dose: 10 mg Fluticasone/Salmeterol (Advair Diskus 500/50) 1 puff INH RQ12 [facility] Last Admin: 01/02/18 07:45 Dose: Not Given Tiotropium [place] (Spiriva) 18 mcg INH RQD [facility] Last Admin: 01/02/18 07:59 Dose: Not Given Tramadol HCl (Ultram) 50 mg PO Q8 PRN PRN Reason: Pain, severe (8-10) Last Admin: 12/31/17 01:36 Dose: 50 mg - Labs Labs: 01/03/18 07:36 01/03/18 07:36 PT 12.9 SECONDS (9.7-12.2) H 01/02/18 17:08 INR 1.2 01/02/18 17:08 APTT 27 SECONDS (21-34) D 01/02/18 17:08 - Constitutional Appears: No Acute Distress - Head Exam Head Exam: ATRAUMATIC, NORMAL INSPECTION, NORMOCEPHALIC - Eye Exam Eye Exam: EOMI, Normal appearance, PERRL Pupil Exam: NORMAL ACCOMODATION, PERRL - Neck Exam Neck Exam: Full ROM, Normal Inspection. absent: Lymphadenopathy - Respiratory Exam Respiratory Exam: Clear to Ausculation Bilateral, NORMAL BREATHING PATTERN - Cardiovascular Exam Cardiovascular Exam: REGULAR RHYTHM, +S1, +S2. absent: Murmur - GI/Abdominal Exam GI & Abdominal Exam: Soft, Normal Bowel Sounds. absent: Tenderness - Neurological Exam Neurological Exam: Alert, Awake, CN II-XII Intact, Oriented x3 - Psychiatric Exam Psychiatric exam: Anxious Assessment and Plan (1) COPD (chronic obstructive pulmonary disease) Status: Acute (2) Dehydration with hypernatremia Status: Acute (3) Fever Status: Acute (4) Septicemia Status: Acute (5) UTI (urinary tract infection), bacterial Status: Acute
[2018-01-03] MEDS: Tiotropium 18 mcg Cap For Inhalation INH SCH (08:27)
[2018-01-03] MEDS: Fluticasone-Salmeterol 500-50mcg Diskus INH SCH ×2 (08:27→20:21)
[2018-01-03] MEDS: Albuterol-Ipratrop 3 mg / 0.5 (3 ml) UD INH SCH ×4 (08:27→20:21)
[2018-01-03] MEDS: Enoxaparin 40 mg Syringe SC SCH (09:43)
[2018-01-03] MEDS: Magnesium Oxide 400 mg Tab UD PO SCH ×2 (09:44→18:30)
--- NOTE | 2018-01-03 13:43 | PN ---
DATE: 01/03/2018 LOCATION: 365, bed A. SUBJECTIVE: This is a 77-year-old female seen initially for GI consultation on 01/02/[address] Noel, case discussed at length with him yesterday before and after my GI consultation, patient being seen again today early in the morning, still on ventimask, with very poor oral intake, in a state of DNR and DNI. The entire chart is reviewed including, but not limited to, the most recent lab and radiology study results, current and previous medication list, current and previous medical events. Case discussed with the staff at length. Today's labs showed hemoglobin of 8.4, hematocrit 24.9, with reported PT of 12.9, but normal PTT, with abnormal ABGs. Potassium 3.5, CO2 content of 36 indicative of respiratory alkalosis with low BUN and creatinine, blood glucose level 125, AST 54, with albumin of 2.7, total protein 5.6. PHYSICAL EXAMINATION: GENERAL: A 77-year-old female. VITAL SIGNS: Afebrile with pulse of 92, respiratory rate of 20 to 22, blood pressure of 130/68. HEENT: Showed pale, dry, mucous membranes. Nonicteric sclerae. LUNGS: Scattered bilateral crepitation, with decreased air entry at bases. HEART: Positive S1 and S2, with increased rate. ABDOMEN: With slight generalized tenderness and mild distention. No mass or organomegaly. No rebound tenderness or guarding. RECTAL EXAMINATION: Deferred due to the patient's cardiopulmonary status. EXTREMITIES: With lower extremity mild edematous changes. No clubbing or cyanosis. NEUROLOGIC: No new reported neurological deficits, sensory or motor. IMPRESSION: 1. Malnutrition with hypoalbuminemia and proteinemia. 2. Failure to thrive with probable cerebrovascular accident and dysphagia. 3. Multiple past medical history including, but not limited to, chronic obstructive pulmonary disease, hyperlipidemia, hypertension, osteoarthritis. 4. Anemia most likely secondary to above. 5. Respiratory alkalosis most likely secondary to above. 6. Status post chronic obstructive pulmonary disease by history. 7. Electrolyte imbalance. SUGGESTIONS: 1. Agree with your plan. 2. Correct any underlying electrolyte imbalance. 3. Central hyperalimentation. 4. The patient is a candidate for PEG insertion; however, she is not stable clinically for any aggressive GI procedure in the meantime due to her respiratory insufficiency and status. Further recommendation to follow. Case discussed with Dr. Noel as well as the family. Preston Brown MD
[2018-01-03] MEDS: Vancomycin 1 gm/NS 200 ml 1 GM/200 ML BAG IVPB SCH (21:24)
[2018-01-04] MEDS: guaiFENesin 200 mg/10 ml Syrup UD PO SCH ×6 (02:48→23:52)
[2018-01-04] MEDS: Piperacill/Tazo 3.375gm in Dex 3.375 GM/50 ML BAG IVPB SCH ×3 (04:34→21:09)
[2018-01-04] MEDS: Potassium Ch 20mEq in D5W 1,000 ML IV SCH ×3 (04:36→21:15)
--- NOTE | 2018-01-04 05:29 | CP.PCM.PN ---
Subjective - Date & Time of Evaluation Date of Evaluation: 01/03/18 Time of Evaluation: 18:00 - Subjective Subjective: Pt seen and examined by me is is anxious but improving clinincally, afebrile Na is improving. on Iv fluids, antibiotics, monitor pt on medical management, denies chest pian, nausea, vomitting, abdominal pain, shortness of breath Objective - Vital Signs/Intake and Output Vital Signs (last 24 hours): Temp Pulse Resp BP Pulse Ox 98.4 F 120 H 20 124/46 L 98 01/04/18 00:00 01/04/18 00:00 01/04/18 00:00 01/04/18 00:00 01/04/18 00:00 Intake and Output: 01/03/18 01/04/18 18:59 06:59 Intake Total 1250 1200 Output Total 700 1000 Balance 550 200 - Medications Medications: Current Medications Acetaminophen (Tylenol 325mg Tab) 650 mg PO Q4 PRN PRN Reason: Pain, Mild (1-3) Last Admin: 12/31/17 17:41 Dose: 650 mg Albuterol/Ipratropium (Duoneb 3 Mg/0.5 Mg (3 Ml) Ud) 3 ml INH RQID [facility] Last Admin: 01/03/18 20:21 Dose: 3 ml Ascorbic Acid (Vitamin C 500 Mg Tab) 500 mg PO DAILY [facility] Last Admin: 01/03/18 09:44 Dose: 500 mg Aspirin (Ecotrin) 81 mg PO DAILY [facility] Last Admin: 01/03/18 09:44 Dose: 81 mg Clonazepam (Klonopin) 0.5 mg PO HS [facility] Last Admin: 01/03/18 21:23 Dose: 0.5 mg Diltiazem HCl (Cardizem) 60 mg PO Q8 [facility] Last Admin: 01/03/18 21:26 Dose: 60 mg Enoxaparin Sodium (Lovenox) 40 mg SC DAILY [facility] Last Admin: 01/03/18 09:43 Dose: 40 mg Guaifenesin (Robitussin) 200 mg PO Q4H [facility] Last Admin: 01/04/18 02:48 Dose: Not Given Piperacillin Sod/Tazobactam Sod (Zosyn 3.375 Gm Iv Premix) 3.375 gm in 50 mls @ 100 mls/hr IVPB Q8H [facility] PRN Reason: Protocol Last Admin: 01/04/18 04:34 Dose: 100 mls/hr Potassium Chloride/Dextrose (Potassium Chl 20 Meq In D5w) 1,000 mls @ 125 mls/ hr IV .Q8H [facility] Last Admin: 01/04/18 04:36 Dose: Not Given Vancomycin/Sodium Chloride (Vancomycin 1 Gm/Ns 200 Ml) 1 gm in 200 mls @ 133 mls/hr IVPB Q24H [facility] PRN Reason: Protocol Stop: 01/08/18 18:01 Last Admin: 01/03/18 21:24 Dose: 133 mls/hr Magnesium Hydroxide (Milk Of Magnesia) 30 ml PO DAILY PRN PRN Reason: Constipation Magnesium Oxide (Mag-Ox) 400 mg PO BID [facility] Last Admin: 01/03/18 18:30 Dose: 400 mg Pantoprazole Sodium (Protonix Inj) 40 mg IVP DAILY [facility] Last Admin: 01/03/18 09:44 Dose: 40 mg Rosuvastatin Calcium (Crestor) 10 mg PO HS [facility] Last Admin: 01/03/18 21:22 Dose: 10 mg Fluticasone/Salmeterol (Advair Diskus 500/50) 1 puff INH RQ12 [facility] Last Admin: 01/03/18 20:21 Dose: Not Given Tiotropium [place] (Spiriva) 18 mcg INH RQD [facility] Last Admin: 01/03/18 08:27 Dose: 18 mcg Tramadol HCl (Ultram) 50 mg PO Q8 PRN PRN Reason: Pain, severe (8-10) Last Admin: 12/31/17 01:36 Dose: 50 mg - Labs Labs: 01/03/18 07:36 01/03/18 07:36 PT 12.9 SECONDS (9.7-12.2) H 01/02/18 17:08 INR 1.2 01/02/18 17:08 APTT 27 SECONDS (21-34) D 01/02/18 17:08 - Constitutional Appears: No Acute Distress, Chronically Ill - Head Exam Head Exam: ATRAUMATIC, NORMAL INSPECTION, NORMOCEPHALIC - Eye Exam Eye Exam: EOMI, Normal appearance, PERRL Pupil Exam: NORMAL ACCOMODATION, PERRL - Respiratory Exam Respiratory Exam: Clear to Ausculation Bilateral, NORMAL BREATHING PATTERN - Cardiovascular Exam Cardiovascular Exam: REGULAR RHYTHM, +S1, +S2. absent: Murmur - GI/Abdominal Exam GI & Abdominal Exam: Soft, Normal Bowel Sounds. absent: Tenderness Assessment and Plan (1) COPD (chronic obstructive pulmonary disease) Status: Acute (2) Dehydration with hypernatremia Status: Acute (3) Fever Status: Acute (4) Septicemia Status: Acute (5) UTI (urinary tract infection), bacterial Status: Acute
--- NOTE | 2018-01-04 07:15 | CON ---
DATE: 01/02/[address] Brown to Dr. John Noel. I was called for GI consultation by the admitting MD. The patient is seen and fully examined on 01/02/2018 in the presence of her family members. The entire chart is reviewed including but not limited to most recent lab and radiology study results, current and the previous medication list, current and the previous medical events, allergy to medication list as well as all the available current and the previous medical records. Case discussed with the staff at length. HISTORY OF PRESENT ILLNESS: This is a 77 years old female aphasic who was admitted to the hospital through the emergency room from a senior care with a complaint of very poor oral intake, became lethargic, very poorly respond to any verbal stimuli, it was noticed also as per record the patient is in a status of DNR and DNI. All the information was obtained from medical record, medical staff and nursing staff notes as well as senior care notes. PAST MEDICAL HISTORY: As mentioned including but not limited to; 1. COPD. 2. Hypertension. 3. Hyperlipidemia. 4. Osteoarthritis with chronic lower back pain syndrome. 5. Severe anxiety syndrome. 6. Reported possible CVA. The patient is aphasic with apparently another past medical history of dementia. FAMILY HISTORY Unknown. SOCIAL HISTORY No reported recent history of cigarette smoking or alcohol intake. The patient is a senior care resident. CURRENT MEDICATIONS: Medication list post admission was reviewed. LABORATORY DATA: Initial blood workup at the time of the admission showed hemoglobin of 8.5, hematocrit 27 with leukocytosis of 16.3 with BUN of 26, but low creatinine. Blood glucose level 134, sodium 163 with potassium 3.2 which gradually was improved. PHYSICAL EXAMINATION: GENERAL: A 77 years old female, nonverbal, all the information was obtained from the family members at bedside. VITAL SIGNS: Low grade temperature, pulse of 102, respiratory rate of 22-24 on Venti mask with blood pressure of 166/72. HEENT: Showed pale dry oral mucous membrane. Nonicteric sclerae. LUNGS: Bilateral crepitation with decreased air entry at bases with few rhonchi and few rales. Bilaterally air entry decreased. HEART: Positive S1 and S2 with increased rate. ABDOMEN: Soft with mild generalized tenderness. No mass or organomegaly. No rebound tenderness or guarding. EXTREMITIES: Lower extremity edematous changes. No clubbing or cyanosis. NEUROLOGIC: No reported new neurological deficits, sensory or motor. No reported new focal deficits. IMPRESSION: 1. Failure to thrive with malnutrition and reported . 2. The patient is a candidate for percutaneous endoscopic gastrostomy insertion when she is more stable clinically. 3. Electrolyte imbalance. 4. Known history of chronic obstructive pulmonary disease with respiratory insufficiency and possible acute bronchitis and/or pneumonia 5. Known history of hypertension, hyperlipidemia, congestive heart failure. 6. Possible cerebrovascular accident the patient is aphasic. 7. Anemia most likely secondary to chronic disease versus less likely gastrointestinal blood loss. SUGGESTIONS: 1. Agree with your plan. 2. Correct any underlying electrolyte imbalance. 3. Central hyperalimentation. 4. Cancer markers including CEA and CA-125. 5. Repeat PT and PTT to correct any underlying coagulopathy, if any. 6. The patient to be scheduled for potential PEG insertion only when she is more stable clinically. 7. The case was discussed at length with Dr. Noel before and immediately after my GI consultation on 01/02/2018. Thank you for letting me participate in your patient's case management. Further recommendations to follow. Preston Brown MD
[2018-01-04] MEDS: Albuterol-Ipratrop 3 mg / 0.5 (3 ml) UD INH SCH ×3 (08:10→20:57)
[2018-01-04] MEDS: Fluticasone-Salmeterol 500-50mcg Diskus INH SCH ×2 (08:11→20:57)
[2018-01-04] MEDS: Tiotropium 18 mcg Cap For Inhalation INH SCH (08:11)
[2018-01-04] MEDS: Enoxaparin 40 mg Syringe SC SCH (09:50)
[2018-01-04] MEDS: Magnesium Oxide 400 mg Tab UD PO SCH ×2 (09:51→17:54)
[2018-01-04] MEDS: Vancomycin 1 gm/NS 200 ml 1 GM/200 ML BAG IVPB SCH (17:55)
--- NOTE | 2018-01-04 20:33 | PN ---
DATE: 01/04/2018 LOCATION: 365, bed A. SUBJECTIVE: This is a 77-year-old female in a status of DNR and DNI, seen and examined in rounds with the staff on the floor without any significant clinical changes or reported active bleeding with very poor oral intake. The entire chart is reviewed including but not limited to the most recent lab and radiology study results, current and the previous medication list, current and the previous medical events. No reported actual chest pain, palpitation, or vomiting, but with less shortness of breath. No abdominal pain, but loss of appetite. Most recent lab results reviewed indicative of low hemoglobin and hematocrit, but today's lab is still pending with the latest abnormal ABGs with low potassium, low BUN and creatinine, low total protein, and low albumin. PHYSICAL EXAMINATION: GENERAL: A 77-year-old female. VITAL SIGNS: Afebrile, with pulse of 102, respiratory rate 20 to 22, blood pressure of 136/76. HEENT: Showed pale dry oral mucous membranes. Nonicteric sclera. LUNGS: Few scattered crepitations. Decreased air entry at bases. HEART: Positive S1 and S2. ABDOMEN: Soft. Bowel sounds are present. No mass or organomegaly. No rebound tenderness or guarding. EXTREMITIES: With lower extremity slight edematous changes. NEUROLOGIC: No new reported neurological deficits, sensory or motor. No new reported focal deficits. IMPRESSION: 1. Failure to thrive. 2. Malnutrition with hypoalbuminemia and hypoproteinemia. 3. Reported history of possible cerebrovascular accident with dysphagia, by history. 4. Last medical history including mainly chronic obstructive pulmonary disease, hypertension, hyperlipidemia, with osteoarthritis. 5. Electrolyte imbalance. 9 Anemia secondary to above. SUGGESTIONS: 1. Continue current management. 2. The patient is a candidate for PEG insertion only when she is more stable clinically. 3. Peripheral versus central hyperalimentation. 4. Correct an underlying electrolyte imbalance. 5. Further recommendations to follow. The patient is for potential PEG insertion only when she is more stable clinically. Preston Brown MD
[2018-01-05] MEDS: Potassium Ch 20mEq in D5W 1,000 ML IV SCH ×2 (01:50→16:50)
[2018-01-05] MEDS: guaiFENesin 200 mg/10 ml Syrup UD PO SCH ×5 (03:43→17:45)
--- NOTE | 2018-01-05 05:20 | CP.PCM.PN ---
Subjective - Date & Time of Evaluation Date of Evaluation: 01/04/18 Time of Evaluation: 19:00 - Subjective Subjective: Pt is seen and eamined, is anxious, sodium is improved, wbc went down, afebrile Objective - Vital Signs/Intake and Output Vital Signs (last 24 hours): Temp Pulse Resp BP Pulse Ox 99 F 104 H 20 123/63 99 01/04/18 23:48 01/04/18 23:48 01/04/18 23:48 01/04/18 23:48 01/04/18 23:48 Intake and Output: 01/04/18 01/05/18 18:59 06:59 Intake Total 1000 705 Output Total 600 Balance 400 705 - Medications Medications: Current Medications Acetaminophen (Tylenol 325mg Tab) 650 mg PO Q4 PRN PRN Reason: Pain, Mild (1-3) Last Admin: 12/31/17 17:41 Dose: 650 mg Albuterol/Ipratropium (Duoneb 3 Mg/0.5 Mg (3 Ml) Ud) 3 ml INH RQID [facility] Last Admin: 01/04/18 20:57 Dose: 3 ml Ascorbic Acid (Vitamin C 500 Mg Tab) 500 mg PO DAILY [facility] Last Admin: 01/04/18 09:50 Dose: 500 mg Aspirin (Ecotrin) 81 mg PO DAILY [facility] Last Admin: 01/04/18 09:51 Dose: 81 mg Clonazepam (Klonopin) 0.5 mg PO HS [facility] Last Admin: 01/04/18 21:21 Dose: 0.5 mg Diltiazem HCl (Cardizem) 60 mg PO Q8 [facility] Last Admin: 01/04/18 21:15 Dose: 60 mg Enoxaparin Sodium (Lovenox) 40 mg SC DAILY [facility] Last Admin: 01/04/18 09:50 Dose: 40 mg Guaifenesin (Robitussin) 200 mg PO Q4H [facility] Last Admin: 01/05/18 03:43 Dose: Not Given Piperacillin Sod/Tazobactam Sod (Zosyn 3.375 Gm Iv Premix) 3.375 gm in 50 mls @ 100 mls/hr IVPB Q8H [facility] PRN Reason: Protocol Last Admin: 01/04/18 21:09 Dose: 100 mls/hr Vancomycin/Sodium Chloride (Vancomycin 1 Gm/Ns 200 Ml) 1 gm in 200 mls @ 133 mls/hr IVPB Q24H [facility] PRN Reason: Protocol Stop: 01/08/18 18:01 Last Admin: 01/04/18 17:55 Dose: 133 mls/hr Potassium Chloride/Dextrose (Potassium Chl 20 Meq In D5w) 1,000 mls @ 70 mls/ hr IV .[id number] [facility] Last Admin: 01/05/18 01:50 Dose: Not Given Lorazepam (Ativan) 0.5 mg PO Q12 PRN PRN Reason: Agitation Magnesium Hydroxide (Milk Of Magnesia) 30 ml PO DAILY PRN PRN Reason: Constipation Magnesium Oxide (Mag-Ox) 400 mg PO BID [facility] Last Admin: 01/04/18 17:54 Dose: 400 mg Pantoprazole Sodium (Protonix Inj) 40 mg IVP DAILY [facility] Last Admin: 01/04/18 09:50 Dose: 40 mg Rosuvastatin Calcium (Crestor) 10 mg PO HS [facility] Last Admin: 01/04/18 23:51 Dose: Not Given Fluticasone/Salmeterol (Advair Diskus 500/50) 1 puff INH RQ12 [facility] Last Admin: 01/04/18 20:57 Dose: Not Given Tiotropium [place] (Spiriva) 18 mcg INH RQD [facility] Last Admin: 01/04/18 08:11 Dose: Not Given Tramadol HCl (Ultram) 50 mg PO Q8 PRN PRN Reason: Pain, severe (8-10) Last Admin: 12/31/17 01:36 Dose: 50 mg - Labs Labs: 01/03/18 07:36 01/03/18 07:36 PT 12.9 SECONDS (9.7-12.2) H 01/02/18 17:08 INR 1.2 01/02/18 17:08 APTT 27 SECONDS (21-34) D 01/02/18 17:08 - Constitutional Appears: No Acute Distress - Head Exam Head Exam: ATRAUMATIC, NORMAL INSPECTION, NORMOCEPHALIC - Eye Exam Eye Exam: EOMI, Normal appearance, PERRL Pupil Exam: NORMAL ACCOMODATION, PERRL - Respiratory Exam Respiratory Exam: Clear to Ausculation Bilateral, NORMAL BREATHING PATTERN - Cardiovascular Exam Cardiovascular Exam: REGULAR RHYTHM, +S1, +S2. absent: Murmur - GI/Abdominal Exam GI & Abdominal Exam: Soft, Normal Bowel Sounds. absent: Tenderness Assessment and Plan (1) COPD (chronic obstructive pulmonary disease) Status: Acute (2) Septicemia Assessment & Plan: antibiotics Status: Acute (3) Dehydration with hypernatremia Assessment & Plan: Iv fluids monitor electrolytes Status: Acute (4) UTI (urinary tract infection), bacterial Status: Acute
--- NOTE | 2018-01-05 05:49 | CP.PCM.PN ---
Subjective - Date & Time of Evaluation Date of Evaluation: 01/05/18 Time of Evaluation: 09:00 - Subjective Subjective: Pt seen and examined at bedside, is feeling better, clinically improving, no n/v , chest pain, sob Objective - Vital Signs/Intake and Output Vital Signs (last 24 hours): Temp Pulse Resp BP Pulse Ox 99 F 104 H 20 123/63 99 01/04/18 23:48 01/04/18 23:48 01/04/18 23:48 01/04/18 23:48 01/04/18 23:48 Intake and Output: 01/04/18 01/05/18 18:59 06:59 Intake Total 1000 705 Output Total 600 Balance 400 705 - Medications Medications: Current Medications Acetaminophen (Tylenol 325mg Tab) 650 mg PO Q4 PRN PRN Reason: Pain, Mild (1-3) Last Admin: 12/31/17 17:41 Dose: 650 mg Albuterol/Ipratropium (Duoneb 3 Mg/0.5 Mg (3 Ml) Ud) 3 ml INH RQID [facility] Last Admin: 01/04/18 20:57 Dose: 3 ml Ascorbic Acid (Vitamin C 500 Mg Tab) 500 mg PO DAILY [facility] Last Admin: 01/04/18 09:50 Dose: 500 mg Aspirin (Ecotrin) 81 mg PO DAILY [facility] Last Admin: 01/04/18 09:51 Dose: 81 mg Clonazepam (Klonopin) 0.5 mg PO HS [facility] Last Admin: 01/04/18 21:21 Dose: 0.5 mg Diltiazem HCl (Cardizem) 60 mg PO Q8 [facility] Last Admin: 01/04/18 21:15 Dose: 60 mg Enoxaparin Sodium (Lovenox) 40 mg SC DAILY [facility] Last Admin: 01/04/18 09:50 Dose: 40 mg Guaifenesin (Robitussin) 200 mg PO Q4H [facility] Last Admin: 01/05/18 03:43 Dose: Not Given Piperacillin Sod/Tazobactam Sod (Zosyn 3.375 Gm Iv Premix) 3.375 gm in 50 mls @ 100 mls/hr IVPB Q8H [facility] PRN Reason: Protocol Last Admin: 01/04/18 21:09 Dose: 100 mls/hr Vancomycin/Sodium Chloride (Vancomycin 1 Gm/Ns 200 Ml) 1 gm in 200 mls @ 133 mls/hr IVPB Q24H [facility] PRN Reason: Protocol Stop: 01/08/18 18:01 Last Admin: 01/04/18 17:55 Dose: 133 mls/hr Potassium Chloride/Dextrose (Potassium Chl 20 Meq In D5w) 1,000 mls @ 70 mls/ hr IV .[id number] [facility] Last Admin: 01/05/18 01:50 Dose: Not Given Lorazepam (Ativan) 0.5 mg PO Q12 PRN PRN Reason: Agitation Magnesium Hydroxide (Milk Of Magnesia) 30 ml PO DAILY PRN PRN Reason: Constipation Magnesium Oxide (Mag-Ox) 400 mg PO BID [facility] Last Admin: 01/04/18 17:54 Dose: 400 mg Pantoprazole Sodium (Protonix Inj) 40 mg IVP DAILY [facility] Last Admin: 01/04/18 09:50 Dose: 40 mg Rosuvastatin Calcium (Crestor) 10 mg PO HS [facility] Last Admin: 01/04/18 23:51 Dose: Not Given Fluticasone/Salmeterol (Advair Diskus 500/50) 1 puff INH RQ12 [facility] Last Admin: 01/04/18 20:57 Dose: Not Given Tiotropium [place] (Spiriva) 18 mcg INH RQD [facility] Last Admin: 01/04/18 08:11 Dose: Not Given Tramadol HCl (Ultram) 50 mg PO Q8 PRN PRN Reason: Pain, severe (8-10) Last Admin: 12/31/17 01:36 Dose: 50 mg - Labs Labs: 01/03/18 07:36 01/03/18 07:36 PT 12.9 SECONDS (9.7-12.2) H 01/02/18 17:08 INR 1.2 01/02/18 17:08 APTT 27 SECONDS (21-34) D 01/02/18 17:08 Assessment and Plan (1) COPD (chronic obstructive pulmonary disease) Status: Acute (2) Dehydration with hypernatremia Status: Acute (3) Fever Status: Acute (4) Septicemia Status: Acute (5) UTI (urinary tract infection), bacterial Status: Acute
[2018-01-05] MEDS: Piperacill/Tazo 3.375gm in Dex 3.375 GM/50 ML BAG IVPB SCH ×2 (05:54→14:58)
[2018-01-05] MEDS: Albuterol-Ipratrop 3 mg / 0.5 (3 ml) UD INH SCH (07:44)
[2018-01-05] MEDS: Fluticasone-Salmeterol 500-50mcg Diskus INH SCH (07:45)
[2018-01-05] MEDS: Tiotropium 18 mcg Cap For Inhalation INH SCH (07:45)
[2018-01-05 08:19] LABS: BASO % 0.3 % (0.0-2.0); EOS # 0.2 K/uL (0.0-0.7); EOS % 1.6 % (0.0-4.0); HEMOGLOBIN 8.2 g/dL (11.0-16.0); LYMPH # 0.6 K/uL (1.0-4.3); LYMPH % 5.3 % (20.0-40.0); MEAN CORPUSCULAR HEMOGLOBIN 29.1 pg (27.0-31.0); MEAN CORPUSCULAR HGB CONC 33.4 g/dL (33.0-37.0); MEAN PLATELET VOLUME 8.6 fL (7.2-11.7); MONO % 8.5 % (0.0-10.0); NEUT # 9.6 K/uL (1.8-7.0); NEUT % 84.3 % (50.0-75.0); NRBC % 0.1 % (0.0-2.0); PLATELET COUNT 289 K/uL (130-400); RBC 2.82 Mil/uL (3.80-5.20); RED CELL DISTRIBUTION WIDTH 15.5 % (11.5-14.5); WHITE BLOOD COUNT 11.4 K/uL (4.8-10.8)
[2018-01-05 08:48] LABS: ALB/GLOB RATIO 0.9 (1.0-2.1); ALBUMIN 2.7 g/dL (3.5-5.0); ALT/SGPT 36 U/L (9-52); AST/SGOT 44 U/L (14-36); BLOOD UREA NITROGEN 6 mg/dL (7-17); CALCIUM 10.1 mg/dl (8.6-10.4); GFR AFRICAN-AMERICAN > 60; GFR NON-AFRICAN AMERICAN > 60
[2018-01-05 09:26] LABS: ANISOCYTOSIS SLIGHT; EOSINOPHIL 2 % (0-4); HYPOCHROMIC SLIGHT; LYMPHOCYTE 12 % (20-40); MONOCYTE 7 % (0-10); NEUTROPHIL 79 % (50-75); PLATELET ESTIMATE NORMAL (NORMAL); POLYCHROMIC SLIGHT; TOTAL CELLS COUNTED 100
[2018-01-05 09:27] LABS: GIANT PLATELETS PRESENT; LARGE PLATELETS PRESENT
[2018-01-05 09:28] LABS: POIKILOCYTOSIS SLIGHT; SCHISTOCYTES SLIGHT
[2018-01-05 09:29] LABS: OVALOCYTES SLIGHT
--- NOTE | 2018-01-05 10:22 | PN ---
DATE: LOCATION: 365, Bed A. SUBJECTIVE: A 77-year-old female seen and examined at rounds with the staff in the floor in a status of DNR and DNI, with poor oral intake, still on Ventimask due to respiratory insufficiency. The entire chart is reviewed including but not limited to the most recent lab and radiology study results, current and the previous medication list, current and the previous medical events. The patient still in place and no reported active bleeding. Not responding to verbal stimuli. Today's lab test results are still pending; however, the latest lab results showed low hemoglobin and hematocrit with normal platelet count, mild increase of PT with low potassium, low BUN and creatinine, low albumin and low total protein. PHYSICAL EXAMINATION: GENERAL: A 77-year-old female. VITAL SIGNS: Afebrile with pulse of 100, respiratory rate 20 to 22, blood pressure 130/60. HEENT: Showed pale dry oral mucoid membrane. Nonicteric sclerae. LUNGS: Few scattered crepitation. Decreased air entry at bases. HEART: Positive S1 and S2 with increased rate. ABDOMEN: Soft with slight distention. Bowel sounds are present. No mass or organomegaly. No rebound tenderness or guarding. EXTREMITIES: With lower extremities mild edematous changes. No clubbing or cyanosis. Evidence of muscle wasting syndrome is seen. NEUROLOGIC: No reported new neurological deficits, sensory or motor. IMPRESSION: 1. Known history of chronic obstructive pulmonary disease with pneumonia before. 2. Malnutrition with hypoalbuminemia, hypoproteinemia. 3. The patient is a candidate for percutaneous endoscopic gastrostomy insertion. 4. Reported urinary tract infection. 5. Anemia, most likely secondary to above. No evidence of active bleeding so far. 6. Failure to thrive. 7. Electrolyte imbalance. 8. Known history of but not limited to hypertension, hyperlipidemia, osteoarthritis. SUGGESTIONS: 1. Agree with your plan. 2. Increase rate of the peripheral hyperalimentation as needed. 3. The patient for potential PEG insertion only when she is more stable clinically. Otherwise, conservative treatment to follow up. Preston Brown MD [facility] # [id number]
[2018-01-05] MEDS: Magnesium Oxide 400 mg Tab UD PO SCH ×2 (10:51→17:45)
[2018-01-05] MEDS: Enoxaparin 40 mg Syringe SC SCH (11:00)
[2018-01-05] MEDS: Vancomycin 1 gm/NS 200 ml 1 GM/200 ML BAG IVPB SCH (17:44)
[2018-01-06] MEDS: guaiFENesin 200 mg/10 ml Syrup UD PO SCH ×4 (02:30→21:48)
[2018-01-06] MEDS: Potassium Ch 20mEq in D5W 1,000 ML IV SCH ×3 (06:46→19:30)
[2018-01-06] MEDS: Fluticasone-Salmeterol 500-50mcg Diskus INH SCH ×2 (07:38→20:27)
[2018-01-06] MEDS: Tiotropium 18 mcg Cap For Inhalation INH SCH (07:38)
[2018-01-06] MEDS: Magnesium Oxide 400 mg Tab UD PO SCH ×2 (09:10→17:33)
[2018-01-06 09:12] LABS: BASO % 0.3 % (0.0-2.0); EOS # 0.2 K/uL (0.0-0.7); EOS % 1.2 % (0.0-4.0); HEMOGLOBIN 8.5 g/dL (11.0-16.0); LYMPH # 0.6 K/uL (1.0-4.3); LYMPH % 3.9 % (20.0-40.0); MEAN CELL VOLUME 87.3 fL (81.0-99.0); MEAN CORPUSCULAR HEMOGLOBIN 28.5 pg (27.0-31.0); MEAN CORPUSCULAR HGB CONC 32.7 g/dL (33.0-37.0); MEAN PLATELET VOLUME 8.4 fL (7.2-11.7); MONO # 1.3 K/uL (0.0-0.8); NEUT # 13.7 K/uL (1.8-7.0); NEUT % 86.6 % (50.0-75.0); PLATELET COUNT 346 K/uL (130-400); RBC 2.99 Mil/uL (3.80-5.20); RED CELL DISTRIBUTION WIDTH 15.8 % (11.5-14.5); WHITE BLOOD COUNT 15.8 K/uL (4.8-10.8)
[2018-01-06] MEDS: Enoxaparin 40 mg Syringe SC SCH (09:16)
[2018-01-06 09:47] LABS: ALB/GLOB RATIO 0.9 (1.0-2.1); ALBUMIN 3.1 g/dL (3.5-5.0); CALCIUM 10.9 mg/dl (8.6-10.4)
[2018-01-06 10:34] LABS: ANISOCYTOSIS SLIGHT; BANDS 2 % (0-2); EOSINOPHIL 1 % (0-4); LYMPHOCYTE 1 % (20-40); MONOCYTE 6 % (0-10); NEUTROPHIL 90 % (50-75); PLATELET ESTIMATE NORMAL (NORMAL); TOTAL CELLS COUNTED 100
[2018-01-06 10:35] LABS: HYPOCHROMIC SLIGHT; POIKILOCYTOSIS SLIGHT
--- NOTE | 2018-01-06 10:59 | PN ---
DATE: ____ LOCATION: 365, bed A SUBJECTIVE: This is a 77-year-old female, seen and examined early in rounds, without significant clinical changes, but with mild respiratory distress. No reported active bleeding. The patient has very poor oral intake still. Today's lab results are still pending, however, the patient has leukocytosis of 11.4 with hemoglobin 8.2, hematocrit 24.5 as per yesterday's lab results, but normal platelet count with low albumin and low total protein, with increased CO2 content of 40, indicative of respiratory alkalosis. The patient is still in a status of DNR/DNI, poorly respond to any verbal stimuli. PHYSICAL EXAMINATION: GENERAL: A 77-year-old female. VITAL SIGNS: Afebrile with pulse of 106, respiratory rate of 20 to 22, on Ventimask with blood pressure of 146/62. HEENT: Showed pale, dry, oral mucoid membrane. Nonicteric sclerae. LUNGS: Scattered bilateral crepitation. Decreased air entry at bases. HEART: Positive S1 and S2. ABDOMEN: Soft with mild generalized tenderness. Bowel sounds are present but hypoactive. No mass or organomegaly. No rebound tenderness or guarding. EXTREMITIES: With mild lower extremity edematous changes. No clubbing or cyanosis. NEUROLOGIC: No reported new neurological deficits, sensory or motor. IMPRESSION: 1. Malnutrition, hypoalbuminemia, failure to thrive. 2. Patient is a candidate for percutaneous endoscopic gastrostomy insertion only when she is more stable clinically. 3. Known history of chronic obstructive pulmonary disease with pneumonia before. 4. Reported history of urinary tract infection. 5. Electrolyte imbalance. 6. Known history of hyperlipidemia with hypertension, osteoarthritis. 7. Anemia most likely secondary to chronic disease. Has no evidence of active bleeding. SUGGESTIONS: 1. Continue current management. 2. Central hyperalimentation. 3. Guaiac all the stools daily x3. 4. The patient may schedule for PEG insertion only when she is more stable clinically, otherwise close observation with nutritional support to follow. Preston Brown MD
[2018-01-06] MEDS: Vancomycin 1 gm/NS 200 ml 1 GM/200 ML BAG IVPB SCH (18:00)
--- NOTE | 2018-01-06 22:22 | CP.PCM.PN ---
Subjective - Date & Time of Evaluation Date of Evaluation: 01/06/18 Time of Evaluation: 20:40 - Subjective Subjective: Pt seen and examined Objective - Vital Signs/Intake and Output Vital Signs (last 24 hours): Temp Pulse Resp BP Pulse Ox 98.2 F 119 H 22 145/64 100 01/06/18 16:00 01/06/18 16:00 01/06/18 16:00 01/06/18 16:00 01/06/18 16:00 Intake and Output: 01/06/18 01/07/18 18:59 06:59 Intake Total 1165 780 Balance 1165 780 - Medications Medications: Current Medications Acetaminophen (Tylenol 325mg Tab) 650 mg PO Q4 PRN PRN Reason: Pain, Mild (1-3) Last Admin: 12/31/17 17:41 Dose: 650 mg Ascorbic Acid (Vitamin C 500 Mg Tab) 500 mg PO DAILY [facility] Last Admin: 01/06/18 09:10 Dose: Not Given Aspirin (Ecotrin) 81 mg PO DAILY [facility] Last Admin: 01/06/18 09:10 Dose: Not Given Clonazepam (Klonopin) 0.5 mg PO HS [facility] Last Admin: 01/06/18 21:47 Dose: Not Given Diltiazem HCl (Cardizem) 60 mg PO Q8 [facility] Last Admin: 01/06/18 21:47 Dose: Not Given Enoxaparin Sodium (Lovenox) 40 mg SC DAILY [facility] Last Admin: 01/06/18 09:16 Dose: 40 mg Guaifenesin (Robitussin) 200 mg PO Q4H [facility] Last Admin: 01/06/18 21:48 Dose: Not Given Vancomycin/Sodium Chloride (Vancomycin 1 Gm/Ns 200 Ml) 1 gm in 200 mls @ 133 mls/hr IVPB Q24H [facility] PRN Reason: Protocol Stop: 01/08/18 18:01 Last Admin: 01/06/18 18:00 Dose: 133 mls/hr Potassium Chloride/Dextrose (Potassium Chl 20 Meq In D5w) 1,000 mls @ 70 mls/ hr IV .[id number] [facility] Last Admin: 01/06/18 19:30 Dose: Not Given Lorazepam (Ativan) 0.5 mg PO Q12 PRN PRN Reason: Agitation Magnesium Hydroxide (Milk Of Magnesia) 30 ml PO DAILY PRN PRN Reason: Constipation Magnesium Oxide (Mag-Ox) 400 mg PO BID [facility] Last Admin: 01/06/18 17:33 Dose: 400 mg Pantoprazole Sodium (Protonix Ec Tab) 20 mg PO DAILY [facility] Rosuvastatin Calcium (Crestor) 10 mg PO HS [facility] Last Admin: 01/06/18 21:47 Dose: Not Given Fluticasone/Salmeterol (Advair Diskus 500/50) 1 puff INH RQ12 [facility] Last Admin: 01/06/18 20:27 Dose: Not Given Tiotropium [place] (Spiriva) 18 mcg INH RQD [facility] Last Admin: 01/06/18 07:38 Dose: Not Given Tramadol HCl (Ultram) 50 mg PO Q8 PRN PRN Reason: Pain, severe (8-10) Last Admin: 12/31/17 01:36 Dose: 50 mg - Labs Labs: 01/06/18 08:53 01/06/18 08:53 PT 12.9 SECONDS (9.7-12.2) H 01/02/18 17:08 INR 1.2 01/02/18 17:08 APTT 27 SECONDS (21-34) D 01/02/18 17:08 Assessment and Plan (1) COPD (chronic obstructive pulmonary disease) Status: Acute (2) Dehydration with hypernatremia Status: Acute (3) Fever Status: Acute (4) Septicemia Status: Acute (5) UTI (urinary tract infection), bacterial Status: Acute
[2018-01-07] MEDS: guaiFENesin 200 mg/10 ml Syrup UD PO SCH ×6 (03:20→22:25)
[2018-01-07 08:57] LABS: HEMOGLOBIN 8.3 g/dL (11.0-16.0); MEAN CELL VOLUME 87.2 fL (81.0-99.0); MEAN CORPUSCULAR HEMOGLOBIN 28.4 pg (27.0-31.0); MEAN CORPUSCULAR HGB CONC 32.5 g/dL (33.0-37.0); MEAN PLATELET VOLUME 8.5 fL (7.2-11.7); RBC 2.91 Mil/uL (3.80-5.20); RED CELL DISTRIBUTION WIDTH 16.1 % (11.5-14.5); WHITE BLOOD COUNT 17.2 K/uL (4.8-10.8)
[2018-01-07 09:06] LABS: BLOOD UREA NITROGEN 13 mg/dL (7-17); CALCIUM 11.2 mg/dl (8.6-10.4); GFR AFRICAN-AMERICAN > 60; GFR NON-AFRICAN AMERICAN 54
[2018-01-07] MEDS: Tiotropium 18 mcg Cap For Inhalation INH SCH (09:21)
[2018-01-07] MEDS: Fluticasone-Salmeterol 500-50mcg Diskus INH SCH ×2 (09:21→19:54)
[2018-01-07] MEDS ORDERED: Pantoprazole 20 mg EC Tab PO SCH (10:00)
[2018-01-07] MEDS: Magnesium Oxide 400 mg Tab UD PO SCH ×2 (10:21→17:53)
[2018-01-07] MEDS: Enoxaparin 40 mg Syringe SC SCH (10:21)
[2018-01-07] MEDS: Potassium Ch 20mEq in D5W 1,000 ML IV SCH (11:48)
--- NOTE | 2018-01-07 14:06 | RAD ---
PROCEDURE: CHEST RADIOGRAPH, 1 VIEW HISTORY: sob COMPARISON: Chest radiograph dated 12/30/2017 FINDINGS: LUNGS: Bibasilar atelectasis. PLEURA: Questionable small bilateral pleural effusions. CARDIOVASCULAR: Prior sternotomy with sternal wires and surgical clips redemonstrated. Atherosclerotic aortic calcifications. Cardiomediastinal silhouette within normal limits. OSSEOUS STRUCTURES: Unchanged. VISUALIZED UPPER ABDOMEN: Normal. OTHER FINDINGS: None. IMPRESSION: Bibasilar atelectasis. Questionable small bilateral pleural effusions.
[2018-01-07 15:31] LABS: SQUAMOUS EPITHIAL < 1 /hpf (0-5); URINE AMORPHOUS SEDIMENT RARE /ul (<OCC); URINE BACTERIA RARE (<OCC); URINE BILIRUBIN NEGATIVE (NEGATIVE); URINE BLOOD NEGATIVE (NEGATIVE); URINE CLARITY Hazy (Clear); URINE COLOR Yellow (YELLOW); URINE GLUCOSE (UA) NORMAL (Normal); URINE LEUKOCYTE ESTERASE NEG Leu/uL (Negative); URINE PROTEIN NEGATIVE (NEGATIVE); URINE UROBILINOGEN NORMAL mg/dL (0.2-1.0)
[2018-01-07] MEDS: Vancomycin 1 gm/NS 200 ml 1 GM/200 ML BAG IVPB SCH (17:52)
[2018-01-08] MEDS: guaiFENesin 200 mg/10 ml Syrup UD PO SCH ×6 (02:30→21:41)
[2018-01-08] MEDS: Potassium Ch 20mEq in D5W 1,000 ML IV SCH ×3 (06:28→17:13)
--- NOTE | 2018-01-08 07:41 | PN ---
DATE: 01/07/2018 LOCATION: 365, bed A. SUBJECTIVE: This is a 77-year-old female in a state of DNR and DNI, seen early in rounds today in the morning with period of shortness of breath, on oxygen supplement by nasal cannula, then switch to Ventimask. The entire chart is reviewed including but not limited to the most recent lab and radiology study results, current and the previous medication list, current and the previous medical events. Case discussed with the staff at length. Today's lab showed white blood cells of 17.2, hemoglobin 8.3, hematocrit 25.4 with normal platelet count. CO2 content 38 indicative of respiratory alkalosis. Blood glucose level 108, calcium 11.2. The patient is still have very poor oral intake, near none, but no reported chest pain or palpitation or reported active GI bleeding. Today's chest x-ray showed bibasilar atelectasis with small bilateral pleural effusion. PHYSICAL EXAMINATION: GENERAL: A 77-year-old female. VITAL SIGNS: Afebrile with pulse of 84, respiratory rate 20-24, blood pressure 154/58. HEENT: Showed pale dry oral mucoid membrane. Nonicteric sclerae. LUNGS: Few scattered crepitation. Decreased air entry at bases. HEART: Positive S1 and S2. ABDOMEN: Soft with slight distention and mild generalized tenderness. No mass or organomegaly. No rebound tenderness or guarding. EXTREMITIES: Lower extremity edematous changes. No clubbing or cyanosis. NEUROLOGIC: No reported new neurological deficits, sensory or motor. No reported new focal deficits. Peripheral pulses are decreased bilaterally. IMPRESSION: 1. Malnutrition with hypoalbuminemia and hypoproteinemia. 2. Failure to thrive. 3. The patient is a candidate for PEG insertion which is more stable clinically and when the leukocytosis is subsided. 4. Known history of chronic obstructive pulmonary disease, pneumonia with pleural effusion. 5. Reported history of urinary tract infection, osteoarthritis with hypertension as well as hyperlipidemia. 6. Anemia secondary to above. SUGGESTIONS: 1. Continue current management. 2. Again, the patient will need central hyperalimentation. 3. Calorie counting. 4. Repeat blood culture x2. 5. Further recommendation to follow. Preston Brown MD [facility] # [id number]
--- NOTE | 2018-01-08 08:29 | CP.PCM.PN ---
Subjective - Date & Time of Evaluation Date of Evaluation: 01/07/18 Time of Evaluation: 19:00 - Subjective Subjective: Pt seen and examined , weak, drowsy, congested, on antibiotics, afberile, Na is normal Objective - Vital Signs/Intake and Output Vital Signs (last 24 hours): Temp Pulse Resp BP Pulse Ox 98.9 F 116 H 20 152/59 H 97 01/08/18 08:00 01/08/18 08:00 01/08/18 08:00 01/08/18 08:00 01/08/18 08:00 Intake and Output: 01/08/18 01/08/18 06:59 18:59 Intake Total 1235 Output Total 400 Balance 835 - Medications Medications: Current Medications Acetaminophen (Tylenol 325mg Tab) 650 mg PO Q4 PRN PRN Reason: Pain, Mild (1-3) Last Admin: 12/31/17 17:41 Dose: 650 mg Ascorbic Acid (Vitamin C 500 Mg Tab) 500 mg PO DAILY [facility] Last Admin: 01/07/18 10:21 Dose: 500 mg Aspirin (Ecotrin) 81 mg PO DAILY [facility] Last Admin: 01/07/18 10:21 Dose: 81 mg Clonazepam (Klonopin) 0.5 mg PO HS [facility] Last Admin: 01/07/18 22:24 Dose: 0.5 mg Diltiazem HCl (Cardizem) 60 mg PO Q8 [facility] Last Admin: 01/08/18 05:46 Dose: Not Given Enoxaparin Sodium (Lovenox) 40 mg SC DAILY [facility] Last Admin: 01/07/18 10:21 Dose: 40 mg Fentanyl (Duragesic) 1 patch TD Q72H [facility] Last Admin: 01/07/18 19:22 Dose: 1 patch Guaifenesin (Robitussin) 200 mg PO Q4H [facility] Last Admin: 01/08/18 06:29 Dose: Not Given Vancomycin/Sodium Chloride (Vancomycin 1 Gm/Ns 200 Ml) 1 gm in 200 mls @ 133 mls/hr IVPB Q24H [facility] PRN Reason: Protocol Stop: 01/08/18 18:01 Last Admin: 01/07/18 17:52 Dose: 133 mls/hr Potassium Chloride/Dextrose (Potassium Chl 20 Meq In D5w) 1,000 mls @ 70 mls/ hr IV .[id number] [facility] Last Admin: 01/08/18 06:28 Dose: Not Given Lorazepam (Ativan) 0.5 mg PO Q12 PRN PRN Reason: Agitation Last Admin: 01/07/18 22:24 Dose: 0.5 mg Magnesium Hydroxide (Milk Of Magnesia) 30 ml PO DAILY PRN PRN Reason: Constipation Magnesium Oxide (Mag-Ox) 400 mg PO BID [facility] Last Admin: 01/07/18 17:53 Dose: 400 mg Pantoprazole Sodium (Protonix Inj) 40 mg IVP DAILY [facility] Last Admin: 01/07/18 11:48 Dose: 40 mg Rosuvastatin Calcium (Crestor) 10 mg PO HS [facility] Last Admin: 01/07/18 22:59 Dose: Not Given Fluticasone/Salmeterol (Advair Diskus 500/50) 1 puff INH RQ12 [facility] Last Admin: 01/07/18 19:54 Dose: Not Given Tiotropium [place] (Spiriva) 18 mcg INH RQD [facility] Last Admin: 01/07/18 09:21 Dose: Not Given - Labs Labs: 01/07/18 08:45 01/07/18 08:45 PT 12.9 SECONDS (9.7-12.2) H 01/02/18 17:08 INR 1.2 01/02/18 17:08 APTT 27 SECONDS (21-34) D 01/02/18 17:08 Assessment and Plan (1) COPD (chronic obstructive pulmonary disease) Status: Acute (2) Dehydration with hypernatremia Status: Acute (3) Fever Status: Acute (4) Septicemia Status: Acute (5) UTI (urinary tract infection), bacterial Status: Acute
[2018-01-08] MEDS: Enoxaparin 40 mg Syringe SC SCH (09:19)
[2018-01-08] MEDS: Magnesium Oxide 400 mg Tab UD PO SCH ×2 (09:44→17:04)
[2018-01-08] MEDS: Fluticasone-Salmeterol 500-50mcg Diskus INH SCH (10:43)
[2018-01-08] MEDS: Tiotropium 18 mcg Cap For Inhalation INH SCH (10:44)
[2018-01-08 11:03] LABS: ABG ALLEN TEST POS; ARTERIAL BLOOD GAS HEMOGLOBIN 7.2 g/dL (11.7-17.4); ARTERIAL BLOOD GAS O2 SAT 99.2 % (95-98); ARTERIAL BLOOD GAS PCO2 78 mm/Hg (35-45); ARTERIAL BLOOD GAS PH 7.31 (7.35-7.45); ARTERIAL BLOOD GAS PO2 91 mm/Hg (80-100); ARTERIAL BLOOD GAS TCO2 41.7 mmol/L (22-28)
--- NOTE | 2018-01-08 17:04 | CP.PCM.CON ---
History of Present Illness - History of Present Illness History of Present Illness: Reason for Consult: Hypoxia This is a 77 year old female with PMHx of HTN, COPD, Aphasia, Dementia, and possible CVA, came to the ED on 12/30/2017 from detention due to decreased appetite. Patient was examined at bedside and was unable to provide information. Patient's neice was seen at bedside and unable to provide patient' s medical history. According to ED note, patient was lethargic and not eating welll. She also had elevated temperatures. Patient has a DNR and DNI. During hospital course, patient found to have a positive urine culture for Klebsiella and treated for sepsis. PMHx: HTN, aphasia, dementia, possible CVA, COPD Allergies: Tuna oil Medications: PSH: Unknown Family Hx: Unknown Social Hx: Unknown Assessment/Plan: 1. Hypercapnia CXR 01/07: Bibasilar atelectasis. Questionable small bilateral pleural effusions. - Initiate BiPap - Repeat ABG 2. COPD - Continue Advair - Continue Spiriva 3. Urinary Tract Infection - Positive Urine Cx 12/30: Klebsiella Pneumoniae, Enterococcus Faecalis - Repeat Urine Cx 01/07 Negative - WBC trending up, most recent (01/07) was 17.2 - Continue Vancomycin - Repeat Lactic Acid (previous lactate 1.4 on 12/31) 4. HTN - Management by primary team Past Patient History - Infectious Disease Hx of Infectious Diseases: None - Past Medical History & Family History Past Medical History?: Yes - Past Social History Smoking Status: Never Smoked - CARDIAC Hx Hypercholesterolemia: Yes Hx Hypertension: Yes - PULMONARY Hx Asthma: Yes Hx Chronic Obstructive Pulmonary Disease (COPD): Yes - NEUROLOGICAL Hx Neurological Disorder: No - RENAL Hx Chronic Kidney Disease: No - ENDOCRINE/METABOLIC Hx Endocrine Disorders: No - HEMATOLOGICAL/ONCOLOGICAL Hx Blood Disorders: No - INTEGUMENTARY Hx Dermatological Problems: Yes Other/Comment: Non-healing wound right heel secured with gauze - MUSCULOSKELETAL/RHEUMATOLOGICAL Hx Arthritis: Yes (BACK) - GASTROINTESTINAL Hx Gastrointestinal Disorders: No - GENITOURINARY/GYNECOLOGICAL Hx Genitourinary Disorders: No - PSYCHIATRIC Hx Anxiety: Yes Hx Substance Use: No - SURGICAL HISTORY Hx Surgeries: Yes Other/Comment: Left AKA - ANESTHESIA Hx Anesthesia: Yes Hx Anesthesia Reactions: No Meds Allergies/Adverse Reactions: Allergies Allergy/AdvReac Type Severity Reaction Status Date / Time tuna oil Allergy URTICARIA Verified 12/30/17 21:48 - Medications Medications: Current Medications Acetaminophen (Tylenol 325mg Tab) 650 mg PO Q4 PRN PRN Reason: Pain, Mild (1-3) Last Admin: 12/31/17 17:41 Dose: 650 mg Ascorbic Acid (Vitamin C 500 Mg Tab) 500 mg PO DAILY [facility] Last Admin: 01/08/18 09:45 Dose: Not Given Aspirin (Ecotrin) 81 mg PO DAILY [facility] Last Admin: 01/08/18 09:43 Dose: Not Given Clonazepam (Klonopin) 0.5 mg PO HS [facility] Last Admin: 01/07/18 22:24 Dose: 0.5 mg Diltiazem HCl (Cardizem) 60 mg PO Q8 [facility] Last Admin: 01/08/18 13:47 Dose: Not Given Enoxaparin Sodium (Lovenox) 40 mg SC DAILY [facility] Last Admin: 01/08/18 09:19 Dose: 40 mg Fentanyl (Duragesic) 1 patch TD Q72H [facility] Last Admin: 01/07/18 19:22 Dose: 1 patch Guaifenesin (Robitussin) 200 mg PO Q4H [facility] Last Admin: 01/08/18 14:39 Dose: Not Given Vancomycin/Sodium Chloride (Vancomycin 1 Gm/Ns 200 Ml) 1 gm in 200 mls @ 133 mls/hr IVPB Q24H [facility] PRN Reason: Protocol Stop: 01/08/18 18:01 Last Admin: 01/07/18 17:52 Dose: 133 mls/hr Potassium Chloride/Dextrose (Potassium Chl 20 Meq In D5w) 1,000 mls @ 40 mls/ hr IV .Q24H [facility] Last Admin: 01/08/18 11:58 Dose: 40 mls/hr Lorazepam (Ativan) 0.5 mg PO Q12 PRN PRN Reason: Agitation Last Admin: 01/07/18 22:24 Dose: 0.5 mg Magnesium Hydroxide (Milk Of Magnesia) 30 ml PO DAILY PRN PRN Reason: Constipation Magnesium Oxide (Mag-Ox) 400 mg PO BID [facility] Last Admin: 01/08/18 09:44 Dose: Not Given Pantoprazole Sodium (Protonix Inj) 40 mg IVP DAILY [facility] Last Admin: 01/08/18 09:18 Dose: 40 mg Rosuvastatin Calcium (Crestor) 10 mg PO [facility] Last Admin: 01/07/18 22:59 Dose: Not Given Fluticasone/Salmeterol (Advair Diskus 500/50) 1 puff INH RQ12 [facility] Last Admin: 01/08/18 10:43 Dose: Not Given Tiotropium [place] (Spiriva) 18 mcg INH RQD [facility] Last Admin: 01/08/18 10:44 Dose: Not Given Results - Vital Signs Recent Vital Signs: Last Vital Signs Temp 98.9 F 01/08/18 08:00 Pulse 100 H 01/08/18 11:42 Resp 20 01/08/18 08:00 BP 152/59 H 01/08/18 11:04 Pulse Ox 97 01/08/18 08:00 - Labs Result Diagrams: 01/07/18 08:45 01/07/18 08:45 Labs: Laboratory Results - last 24 hr 01/08/18 10:58 Puncture Site Rra pCO2 78 H* pO2 91 HCO3 34.0 H ABG pH 7.31 L ABG Total CO2 41.7 H ABG O2 Saturation 99.2 H ABG Base Excess 11.6 H ABG Hemoglobin 7.2 L ABG Carboxyhemoglobin 2.5 H POC ABG HHb (Measured) 0.8 ABG Methemoglobin 0.9 Vahid Test Pos A-a O2 Difference 204.0 Respiratory Index 2.2 Hgb O2 Saturation 95.8 FiO2 55.0 Crit Value Called To Garcia julian Crit Value Called By Darryl mcclellan work environment safety inspector Crit Value Read Back Y Blood Gas Notified Time 1106
[2018-01-08] MEDS: Vancomycin 1 gm/NS 200 ml 1 GM/200 ML BAG IVPB SCH (17:12)
--- NOTE | 2018-01-09 00:13 | CP.PCM.PN ---
Subjective - Date & Time of Evaluation Date of Evaluation: 01/08/18 Time of Evaluation: 20:40 - Subjective Subjective: Pt seen and examined at bedside, she is deterioting, wbc is up, afebrile, we shall consider in patient hospice Objective - Vital Signs/Intake and Output Vital Signs (last 24 hours): Temp Pulse Resp BP Pulse Ox 98.2 F 114 H 24 155/64 H 100 01/08/18 16:00 01/08/18 16:00 01/08/18 16:00 01/08/18 16:00 01/08/18 16:00 Intake and Output: 01/08/18 01/09/18 18:59 06:59 Intake Total 470 655 Output Total 1050 300 Balance -580 355 - Medications Medications: Current Medications Acetaminophen (Tylenol 325mg Tab) 650 mg PO Q4 PRN PRN Reason: Pain, Mild (1-3) Last Admin: 12/31/17 17:41 Dose: 650 mg Ascorbic Acid (Vitamin C 500 Mg Tab) 500 mg PO DAILY [facility] Last Admin: 01/08/18 09:45 Dose: Not Given Aspirin (Ecotrin) 81 mg PO DAILY [facility] Last Admin: 01/08/18 09:43 Dose: Not Given Clonazepam (Klonopin) 0.5 mg PO HS [facility] Last Admin: 01/08/18 21:10 Dose: Not Given Diltiazem HCl (Cardizem) 60 mg PO Q8 [facility] Last Admin: 01/08/18 21:10 Dose: Not Given Enoxaparin Sodium (Lovenox) 40 mg SC DAILY [facility] Last Admin: 01/08/18 09:19 Dose: 40 mg Fentanyl (Duragesic) 1 patch TD Q72H [facility] Last Admin: 01/07/18 19:22 Dose: 1 patch Guaifenesin (Robitussin) 200 mg PO Q4H [facility] Last Admin: 01/08/18 21:41 Dose: Not Given Potassium Chloride/Dextrose (Potassium Chl 20 Meq In D5w) 1,000 mls @ 40 mls/ hr IV .Q24H [facility] Last Admin: 01/08/18 17:13 Dose: 40 mls/hr Lorazepam (Ativan) 0.5 mg PO Q12 PRN PRN Reason: Agitation Last Admin: 01/07/18 22:24 Dose: 0.5 mg Magnesium Hydroxide (Milk Of Magnesia) 30 ml PO DAILY PRN PRN Reason: Constipation Magnesium Oxide (Mag-Ox) 400 mg PO BID [facility] Last Admin: 01/08/18 17:04 Dose: Not Given Pantoprazole Sodium (Protonix Inj) 40 mg IVP DAILY [facility] Last Admin: 01/08/18 09:18 Dose: 40 mg Rosuvastatin Calcium (Crestor) 10 mg PO HS [facility] Last Admin: 01/08/18 21:10 Dose: Not Given Fluticasone/Salmeterol (Advair Diskus 500/50) 1 puff INH RQ12 [facility] Last Admin: 01/08/18 10:43 Dose: Not Given Tiotropium [place] (Spiriva) 18 mcg INH RQD [facility] Last Admin: 01/08/18 10:44 Dose: Not Given - Labs Labs: 01/07/18 08:45 01/07/18 08:45 PT 12.9 SECONDS (9.7-12.2) H 01/02/18 17:08 INR 1.2 01/02/18 17:08 APTT 27 SECONDS (21-34) D 01/02/18 17:08 - Constitutional Appears: No Acute Distress, Chronically Ill - Head Exam Head Exam: ATRAUMATIC, NORMAL INSPECTION, NORMOCEPHALIC - Eye Exam Eye Exam: EOMI, Normal appearance, PERRL Pupil Exam: NORMAL ACCOMODATION, PERRL - Respiratory Exam Respiratory Exam: Decreased Breath Sounds, Rales, Rhonchi - Cardiovascular Exam Cardiovascular Exam: Tachycardia, +S1, +S2 - GI/Abdominal Exam GI & Abdominal Exam: Soft, Normal Bowel Sounds. absent: Tenderness Assessment and Plan (1) COPD (chronic obstructive pulmonary disease) Status: Acute (2) Dehydration with hypernatremia Status: Acute (3) Fever Status: Acute (4) Septicemia Status: Acute (5) UTI (urinary tract infection), bacterial Status: Acute
[2018-01-09] MEDS: guaiFENesin 200 mg/10 ml Syrup UD PO SCH ×2 (05:19→10:38)
[2018-01-09 08:12] VITALS: PULSE 108
[2018-01-09] MEDS: Magnesium Oxide 400 mg Tab UD PO SCH (10:38)
[2018-01-09] MEDS: Enoxaparin 40 mg Syringe SC SCH (10:54)
--- NOTE | 2018-01-09 11:35 | CP.PCM.PN ---
Subjective - Date & Time of Evaluation Date of Evaluation: 01/09/18 Time of Evaluation: 11:33 - Subjective Subjective: Patient is lethargic, restless, on bipap, responds to calls. Objective - Vital Signs/Intake and Output Vital Signs (last 24 hours): Temp Pulse Resp BP Pulse Ox 98.2 F 108 H 24 155/64 H 100 01/08/18 16:00 01/09/18 08:09 01/08/18 16:00 01/08/18 16:00 01/08/18 16:00 Intake and Output: 01/09/18 01/09/18 06:59 18:59 Intake Total 655 320 Output Total 300 240 Balance 355 80 - Medications Medications: Current Medications Acetaminophen (Tylenol 325mg Tab) 650 mg PO Q4 PRN PRN Reason: Pain, Mild (1-3) Last Admin: 12/31/17 17:41 Dose: 650 mg Ascorbic Acid (Vitamin C 500 Mg Tab) 500 mg PO DAILY [facility] Last Admin: 01/09/18 10:39 Dose: Not Given Aspirin (Ecotrin) 81 mg PO DAILY [facility] Last Admin: 01/09/18 10:37 Dose: Not Given Clonazepam (Klonopin) 0.5 mg PO HS [facility] Last Admin: 01/08/18 21:10 Dose: Not Given Diltiazem HCl (Cardizem) 60 mg PO Q8 [facility] Last Admin: 01/09/18 06:26 Dose: 60 mg Enoxaparin Sodium (Lovenox) 40 mg SC DAILY [facility] Last Admin: 01/09/18 10:54 Dose: 40 mg Fentanyl (Duragesic) 1 patch TD Q72H [facility] Last Admin: 01/07/18 19:22 Dose: 1 patch Guaifenesin (Robitussin) 200 mg PO Q4H [facility] Last Admin: 01/09/18 10:38 Dose: Not Given Potassium Chloride/Dextrose (Potassium Chl 20 Meq In D5w) 1,000 mls @ 40 mls/ hr IV .Q24H [facility] Last Admin: 01/08/18 17:13 Dose: 40 mls/hr Lorazepam (Ativan) 0.5 mg PO Q12 PRN PRN Reason: Agitation Last Admin: 01/09/18 01:06 Dose: 0.5 mg Magnesium Hydroxide (Milk Of Magnesia) 30 ml PO DAILY PRN PRN Reason: Constipation Magnesium Oxide (Mag-Ox) 400 mg PO BID [facility] Last Admin: 01/09/18 10:38 Dose: Not Given Pantoprazole Sodium (Protonix Inj) 40 mg IVP DAILY [facility] Last Admin: 01/09/18 10:54 Dose: 40 mg Rosuvastatin Calcium (Crestor) 10 mg PO HS [facility] Last Admin: 01/08/18 21:10 Dose: Not Given Fluticasone/Salmeterol (Advair Diskus 500/50) 1 puff INH RQ12 [facility] Last Admin: 01/08/18 10:43 Dose: Not Given Tiotropium [place] (Spiriva) 18 mcg INH RQD [facility] Last Admin: 01/08/18 10:44 Dose: Not Given - Labs Labs: 01/07/18 08:45 01/07/18 08:45 PT 12.9 SECONDS (9.7-12.2) H 01/02/18 17:08 INR 1.2 01/02/18 17:08 APTT 27 SECONDS (21-34) D 01/02/18 17:08 Assessment and Plan - Assessment and Plan (Free Text) Assessment: Patient is responsive to calls, restless at times., placed on bipap since yesterday. Being discharged to hospice care for comfort measures. Discussed with DR Noel. Family is in agreement.
[2018-01-09] MEDS ORDERED: Morphine Sulfate 250 MG in Dextrose 5% In Water 240 ML IV PRN (11:39)
[2018-01-09 17:11] VITALS: BP 137/66; RESP 20; TEMP 98.3; O2SAT 99
--- NOTE | 2018-01-09 19:41 | PN ---
DATE: 01/09/2018 LOCATION: 365, Bed A. SUBJECTIVE: This 77-year-old female seen and examined in rounds early today and is status of DNR before. The patient is still having periods of shortness of breath, on BiPAP, with very poor oral intake, to near 0. The entire chart is reviewed including but not limited to the most recent lab and radiology study results, current and previous medication list, current and previous medical events. Today's lab results are still pending. Case discussed with the family member at the bedside. PHYSICAL EXAMINATION: GENERAL: A 77-year-old female. VITAL SIGNS: Afebrile with pulse of 100 and poor respiratory rate of 24-26, blood pressure 150/62. HEENT: Showed pale dry oral mucoid membrane. Nonicteric sclerae. LUNGS: Few scattered crepitation. Decreased air entry at bases. HEART: Positive S1 and S2. ABDOMEN: Soft with mild generalized tenderness. No mass or organomegaly. No rebound tenderness or guarding. EXTREMITIES: Without edema, clubbing. or cyanosis. NEUROLOGIC: No new reported neurological deficits, sensory or motor. The patient is not well communicating. IMPRESSION: 1. Malnutrition, hypoalbuminemia. 2. Failure to thrive. 3. Anemia most likely secondary to above. 4. Respiratory insufficiency. 5. The patient is a candidate for PEG insertion only when she is more stable clinically; otherwise, central hyperalimentation was hospice planning to be enforced. 6. Known history of urinary tract infection, osteoarthritis, hyperlipidemia, hypertension. Known history of chronic obstructive pulmonary disease with pneumonia and pleural effusion. SUGGESTIONS: 1. Continue current management. 2. Central hyperalimentation. 3. Guaiac all the stool daily x3. 4. Further recommendations to follow. Preston Brown MD
--- NOTE | 2018-01-09 23:35 | CP.PCM.DIS ---
Provider - Provider Date of Admission: 12/30/17 23:02 Attending physician: John Noel MD Primary care physician: John Noel MD Diagnosis - Discharge Diagnosis (1) COPD (chronic obstructive pulmonary disease) Status: Acute (2) Dehydration with hypernatremia Status: Acute (3) Fever Status: Acute (4) Septicemia Status: Acute (5) UTI (urinary tract infection), bacterial Status: Acute Hospital Course - Lab Results Lab Results: Micro Results 01/07/18 15:15 Urine,Catheterized Urine Culture - Final No Growth (<1,000 CFU/ML) 12/30/17 22:01 Blood-Venous Blood Culture - Final NO GROWTH AFTER 5 DAYS 12/30/17 22:01 Blood-Venous Gram Stain - Final TEST NOT PERFORMED 12/30/17 22:01 Blood-Venous Blood Culture - Final NO GROWTH AFTER 5 DAYS 12/30/17 22:01 Blood-Venous Gram Stain - Final TEST NOT PERFORMED 12/30/17 22:28 Urine,Catheterized Urine Culture - Final Klebsiella Pneumoniae Ssp Pneu Enterococcus Faecalis Most Recent Lab Values WBC 17.2 K/uL (4.8-10.8) H 01/07/18 08:45 RBC 2.91 Mil/uL (3.80-5.20) L 01/07/18 08:45 Hgb 8.3 g/dL (11.0-16.0) L 01/07/18 08:45 Hct 25.4 % (34.0-47.0) L 01/07/18 08:45 MCV 87.2 fL (81.0-99.0) 01/07/18 08:45 MCH 28.4 pg (27.0-31.0) 01/07/18 08:45 MCHC 32.5 g/dL (33.0-37.0) L 01/07/18 08:45 RDW 16.1 % (11.5-14.5) H 01/07/18 08:45 Plt Count 361 K/uL (130-400) 01/07/18 08:45 MPV 8.5 fL (7.2-11.7) 01/07/18 08:45 Neut % (Auto) 86.6 % (50.0-75.0) H 01/06/18 08:53 Lymph % (Auto) 3.9 % (20.0-40.0) L 01/06/18 08:53 [place] % (Auto) 8.0 % (0.0-10.0) 01/06/18 08:53 Eos % (Auto) 1.2 % (0.0-4.0) 01/06/18 08:53 Baso % (Auto) 0.3 % (0.0-2.0) 01/06/18 08:53 Neut # (Auto) 13.7 K/uL (1.8-7.0) H 01/06/18 08:53 Lymph # (Auto) 0.6 K/uL (1.0-4.3) L 01/06/18 08:53 [place]cho # (Auto) 1.3 K/uL (0.0-0.8) H 01/06/18 08:53 Eos # (Auto) 0.2 K/uL (0.0-0.7) 01/06/18 08:53 Baso # (Auto) 0.0 K/uL (0.0-0.2) 01/06/18 08:53 Neutrophils % (Manual) 90 % (50-75) H 01/06/18 08:53 Band Neutrophils % 2 % (0-2) 01/06/18 08:53 Lymphocytes % (Manual) 1 % (20-40) L 01/06/18 08:53 Monocytes % (Manual) 6 % (0-10) 01/06/18 08:53 Eosinophils % (Manual) 1 % (0-4) 01/06/18 08:53 Platelet Estimate Normal (NORMAL) 01/06/18 08:53 Large Platelets Present 01/05/18 08:07 Giant Platelets Present 01/05/18 08:07 Polychromasia Slight 01/05/18 08:07 Hypochromasia (manual) Slight 01/06/18 08:53 Poikilocytosis (manual Slight 01/06/18 08:53 Basophilic Stippling Slight 01/06/18 08:53 Anisocytosis (manual) Slight 01/06/18 08:53 Ovalocytes Slight 01/05/18 08:07 Schistocytes Slight 01/05/18 08:07 PT 12.9 SECONDS (9.7-12.2) H 01/02/18 17:08 INR 1.2 01/02/18 17:08 APTT 27 SECONDS (21-34) D 01/02/18 17:08 Puncture Site Rra 01/08/18 10:58 pCO2 78 mm/Hg (35-45) H* 01/08/18 10:58 pO2 91 mm/Hg (80-100) 01/08/18 10:58 HCO3 34.0 mmol/L (21-28) H 01/08/18 10:58 ABG pH 7.31 (7.35-7.45) L 01/08/18 10:58 ABG Total CO2 41.7 mmol/L (22-28) H 01/08/18 10:58 ABG O2 Saturation 99.2 % (95-98) H 01/08/18 10:58 ABG Base Excess 11.6 mmol/L (-2.0-3.0) H 01/08/18 10:58 ABG Hemoglobin 7.2 g/dL (11.7-17.4) L 01/08/18 10:58 ABG Carboxyhemoglobin 2.5 % (0.5-1.5) H 01/08/18 10:58 POC ABG HHb (Measured) 0.8 % (0.0-5.0) 01/08/18 10:58 ABG Methemoglobin 0.9 % (0.0-3.0) 01/08/18 10:58 Vahid Test Pos 01/08/18 10:58 VBG pH 7.53 (7.32-7.43) H 12/30/17 22:03 VBG pCO2 50 mmHg (40-60) 12/30/17 22:03 VBG HCO3 37.9 mmol/L 12/30/17 22:03 VBG Total CO2 43.3 mmol/L (22-28) H 12/30/17 22:03 VBG O2 Sat (Calc) 98.0 % (40-65) H 12/30/17 22:03 VBG Base Excess 16.6 mmol/L (0.0-2.0) H 12/30/17 22:03 VBG Potassium 2.8 mmol/L (3.6-5.2) L 12/30/17 22:03 A-a O2 Difference 204.0 mm/Hg 01/08/18 10:58 Respiratory Index 2.2 01/08/18 10:58 Hgb O2 Saturation 95.8 % (95.0-98.0) 01/08/18 10:58 Sodium 161.0 mmol/l (132-148) H* 12/30/17 22:03 Chloride 117.0 mmol/L (98-107) H 12/30/17 22:03 Glucose 141 mg/dl (65-105) H 12/30/17 22:03 Lactate 2.5 mmol/L (0.7-2.1) H 12/30/17 22:03 FiO2 55.0 % 01/08/18 10:58 Crit Value Called To Garcia julian 01/08/18 10:58 Crit Value Called By Darryl mcclellan rrt 01/08/18 10:58 Crit Value Read Back Y 01/08/18 10:58 Blood Gas Notified Time 1103 01/08/18 10:58 Sodium 143 mmol/L (132-148) 01/07/18 08:45 Potassium 4.5 mmol/L (3.6-5.2) 01/07/18 08:45 Chloride 99 mmol/L (98-107) 01/07/18 08:45 Carbon Dioxide 38 mmol/L (22-30) H 01/07/18 08:45 Anion Gap 10 (10-20) 01/07/18 08:45 BUN 13 mg/dL (7-17) 01/07/18 08:45 Creatinine 1.0 mg/dL (0.7-1.2) 01/07/18 08:45 Est GFR ( Amer) > 60 01/07/18 08:45 Est GFR (Non-Af Amer) 54 01/07/18 08:45 Random Glucose 108 mg/dL (65-105) H 01/07/18 08:45 Lactic Acid 1.4 mmol/L (0.7-2.1) 12/31/17 02:25 Calcium 11.2 mg/dl (8.6-10.4) H 01/07/18 08:45 Total Bilirubin 0.2 mg/dL (0.2-1.3) 01/06/18 08:53 AST 51 U/L (14-36) H 01/06/18 08:53 ALT 32 U/L (9-52) 01/06/18 08:53 Alkaline Phosphatase 117 U/L (38-126) 01/06/18 08:53 Total Protein 6.5 g/dL (6.3-8.3) 01/06/18 08:53 Albumin 3.1 g/dL (3.5-5.0) L 01/06/18 08:53 Globulin 3.4 gm/dL (2.2-3.9) 01/06/18 08:53 Albumin/Globulin Ratio 0.9 (1.0-2.1) L 01/06/18 08:53 Venous Blood Potassium 2.8 mmol/L (3.6-5.2) L 12/30/17 22:03 Urine Color Yellow (YELLOW) 01/07/18 15:15 Urine Clarity Hazy (Clear) 01/07/18 15:15 Urine pH 5.0 (5.0-8.0) 01/07/18 15:15 Ur Specific Downey 1.012 (1.003-1.030) 01/07/18 15:15 Urine Protein Negative mg/dL (NEGATIVE) 01/07/18 15:15 Urine Glucose (UA) Normal mg/dL (Normal) 01/07/18 15:15 Urine Ketones Negative mg/dL (NEGATIVE) 01/07/18 15:15 Urine Blood Negative (NEGATIVE) 01/07/18 15:15 Urine Nitrate Negative (NEGATIVE) 01/07/18 15:15 Urine Bilirubin Negative (NEGATIVE) 01/07/18 15:15 Urine Urobilinogen Normal mg/dL (0.2-1.0) 01/07/18 15:15 Ur Leukocyte Esterase Neg Yony/uL (Negative) 01/07/18 15:15 Urine WBC (Auto) 6 /hpf (0-5) H 12/30/17 22:28 Urine RBC (Auto) 7 /hpf (0-3) H 12/30/17 22:28 Ur Squamous Epith Cells < 1 /hpf (0-5) 01/07/18 15:15 Amorphous Sediment Rare /ul (<OCC) H 01/07/18 15:15 Urine Bacteria Rare (<OCC) 01/07/18 15:15 Blood Type O POSITIVE 12/31/17 12:14 Antibody Screen Negative 12/31/17 12:14 - Hospital Course Hospital Course: Patient is responsive to calls, restless at times., placed on bipap since yesterday. Being discharged to hospice care for comfort measures. Discussed with Family who is in agreement. Discharge Exam - Head Exam Head Exam: ATRAUMATIC, NORMAL INSPECTION, NORMOCEPHALIC Discharge Plan - Follow Up Plan Condition: GUARDED Disposition: HOSPICE - MEDICAL FACILITY Instructions: Sepsis, Adult (DC), Urinary Tract Infection in Women (DC) Referrals: John Noel MD [Primary Care Provider] -
== END 2018-01-09 13:18 | disposition hospice, inpatient (51) | DRG 871 ==
LOC: SUPCPDRO 21:45 → C.ER 21:45 → C.9E 23:02 → C.3T 23:31
PROVIDERS: ADMIT Internal Medicine; ATTEND Internal Medicine
DX: A41.9 Sepsis, unspecified organism (principal); J18.9 Pneumonia, unspecified organism; E46 Unspecified protein-calorie malnutrition; E87.0 Hyperosmolality and hypernatremia; E87.3 Alkalosis; J44.0 Chronic obstructive pulmonary disease with (acute) lower respiratory infection; J98.11 Atelectasis; N39.0 Urinary tract infection, site not specified; R47.01 Aphasia; D63.8 Anemia in other chronic diseases classified elsewhere; E77.8 Other disorders of glycoprotein metabolism; E86.0 Dehydration; F03.90 Unspecified dementia, unspecified severity, without behavioral disturbance, psychotic disturbance, mood disturbance, and anxiety; I11.0 Hypertensive heart disease with heart failure; I50.9 Heart failure, unspecified; R09.02 Hypoxemia; R13.10 Dysphagia, unspecified; R62.7 Adult failure to thrive; B96.1 Klebsiella pneumoniae [K. pneumoniae] as the cause of diseases classified elsewhere; B95.2 Enterococcus as the cause of diseases classified elsewhere; E78.5 Hyperlipidemia, unspecified; E78.00 Pure hypercholesterolemia, unspecified; Z66 Do not resuscitate; Z51.5 Encounter for palliative care; Z86.73 Personal history of transient ischemic attack (TIA), and cerebral infarction without residual deficits; Z89.612 Acquired absence of left leg above knee; Z87.440 Personal history of urinary (tract) infections

== ENCOUNTER 2018-01-09 11:58 | Inpatient (IN) | payer OTHER ==
[2018-01-09 14:55] VITALS: BMI 17.4
[2018-01-09 16:58] VITALS: O2SAT 100
[2018-01-10] MEDS: Albuterol-Ipratrop 3 mg / 0.5 (3 ml) UD INH SCH ×4 (01:43→20:11)
[2018-01-10 15:58] VITALS: BP 108/52; PULSE 133; RESP 22; TEMP 98.4
--- NOTE | 2018-01-10 16:42 | CP.PCM.PN ---
Subjective - Date & Time of Evaluation Date of Evaluation: 01/09/18 Time of Evaluation: 19:00 - Subjective Subjective: Pt seen and examined is terminal on hospice care, she is sedated, she is on oxygen Objective - Vital Signs/Intake and Output Vital Signs (last 24 hours): Temp Pulse Resp BP Pulse Ox 98.4 F 133 H 22 108/52 L 100 01/10/18 15:57 01/10/18 15:57 01/10/18 15:57 01/10/18 15:57 01/10/18 15:57 Intake and Output: 01/10/18 01/10/18 06:59 18:59 Intake Total 8 Output Total 250 200 Balance -250 -192 - Medications Medications: Current Medications Albuterol/Ipratropium (Duoneb 3 Mg/0.5 Mg (3 Ml) Ud) 3 ml INH RQ6 LATISHA Last Admin: 01/10/18 14:12 Dose: 3 ml Morphine Sulfate 250 mg/ (Sodium Chloride) 250 mls @ 1 mls/hr IV .Q24H PRN PRN Reason: Sedation Last Admin: 01/09/18 16:40 Dose: 1 mls/hr - Constitutional Appears: Confused, Chronically Ill - Head Exam Head Exam: ATRAUMATIC, NORMAL INSPECTION, NORMOCEPHALIC - Eye Exam Eye Exam: EOMI, Normal appearance, PERRL Pupil Exam: NORMAL ACCOMODATION, PERRL - Respiratory Exam Respiratory Exam: Decreased Breath Sounds, Rales, Rhonchi - Cardiovascular Exam Cardiovascular Exam: REGULAR RHYTHM, +S1, +S2. absent: Murmur - GI/Abdominal Exam GI & Abdominal Exam: Soft, Normal Bowel Sounds. absent: Tenderness Assessment and Plan (1) Hospice care Status: Acute (2) COPD (chronic obstructive pulmonary disease) Status: Acute (3) Mass of lung parenchyma Status: Acute (4) Septicemia Status: Acute (5) UTI (urinary tract infection), bacterial Status: Acute
--- NOTE | 2018-01-11 05:14 | CP.PCM.DIS ---
Provider - Provider Date of Admission: 01/09/18 11:58 Attending physician: John Noel MD Time Spent in preparation of Discharge (in minutes): 45 Diagnosis - Discharge Diagnosis (1) Hospice care Status: Acute (2) COPD (chronic obstructive pulmonary disease) Status: Acute (3) Mass of lung parenchyma Status: Acute (4) Septicemia Status: Acute (5) UTI (urinary tract infection), bacterial Status: Acute Hospital Course - Hospital Course Hospital Course: pt was terminaaly sick, on hospice care today Discharge Exam - Head Exam Head Exam: ATRAUMATIC, NORMAL INSPECTION, NORMOCEPHALIC - Eye Exam Pupil Exam: Fixed - Respiratory Exam Additional comments: no breath sounds Discharge Plan - Follow Up Plan Condition: GOOD Disposition: WITH WITHOUT AUTOPSY
== END 2018-01-10 21:45 | DRG 951 ==
LOC: C.3T 11:58
PROVIDERS: ADMIT Internal Medicine; ATTEND Internal Medicine
DX: Z51.5 Encounter for palliative care (principal); A41.9 Sepsis, unspecified organism; N39.0 Urinary tract infection, site not specified; R91.8 Other nonspecific abnormal finding of lung field; J44.9 Chronic obstructive pulmonary disease, unspecified; Z66 Do not resuscitate